=== PATIENT | male | born 1970 | race American Indian/Alaskan Native ===

== ENCOUNTER 2017-09-12 11:25 | Inpatient (IN) | payer BC ==
[2017-09-12 12:07] LABS: Basophils % (Auto) 1.1 % (0.0-1.8); Eosinophils % (Auto) 2.7 % (0.0-4.3); Hematocrit 40.7 % (35.5-45.6); Hemoglobin 13.7 gm/dl (11.8-15.2); Mean Corpuscular HGB Conc 34 % (32-34); Mean Corpuscular Hemoglobin 28 pg (28-32); Mean Corpuscular Volume 82 fl (84-94); Platelet Count 218 K/mm3 (140-440); Red Blood Count 4.94 M/mm3 (3.65-5.03); Red Cell Distribution Width 13.7 % (13.2-15.2); White Blood Count 7.7 K/mm3 (4.5-11.0)
[2017-09-12 12:23] LABS: Anion Gap 19 mmol/L; BUN/Creatinine Ratio 10; Blood Urea Nitrogen 41 mg/dL (9-20); Carbon Dioxide 22 mmol/L (22-30); Chloride 102.3 mmol/L (98-107); Glucose 247 mg/dL (75-100); Potassium 4.5 mmol/L (3.6-5.0); Sodium 139 mmol/L (137-145)
--- NOTE | 2017-09-12 12:42 | XRay Report ---
ROUTINE CHEST, TWO VIEWS: HISTORY: chest pain. The trachea, heart, mediastinal contour, lung amin and bony thorax are unremarkable. IMPRESSION: Unremarkable chest x-ray.
[2017-09-12 13:23] LABS: Cholesterol 170 mg/dL (50-199); HDL Cholesterol 38 mg/dL (40-59); LDL Cholesterol,Direct TNR mg/dL (50-130); Triglycerides 431 mg/dL (2-149)
--- NOTE | 2017-09-12 15:35 | Emergency Department Report ---
HPI - General Chief Complaint: Chest Pain Time Seen by Provider: 09/12/17 15:13 - HPI HPI: Room 2 The patient is a 47-year-old male presents with a chief complaint of chest pain. Patient states the symptoms began 2 days ago with intermittent substernal chest discomfort described as feeling as though there is a "fist pushing" on his chest. Patient states pain is been intermittent and associated with left hand numbness, shortness of breath nausea and vomiting. Patient denies diaphoresis. Patient complains of chronic back pain but denies other pain. Patient currently gives his chest discomfort of 2-3/10. The patient states his last cardiac catheterization occurred in 2011 Location: Chest Duration: Intermittent 2 days Quality: Pushing pain Severity: 2-3/10 Modifying factors: [see above] Context: [see above] Mode of transportation: [not driving] ED Past Medical Hx - Past Medical History Hx Hypertension: Yes Hx Congestive Heart Failure: Yes Hx Diabetes: Yes Hx Renal Disease: Yes Additional medical history: , spinal meningitis as a - Surgical History Additional Surgical History: Angiocath - 2011 - Family History Family history: no significant - Social History Smoking Status: Never Smoker Substance Use Type: None - Medications Home Medications: Home Medications Medication Instructions Recorded Confirmed Last Taken Type ISOSORBIDE MONOnitrate [Imdur ER] 60 mg PO QDAY #30 tablet 07/29/16 06/11/17 Rx Insulin NPH/Regular [NovoLIN 70/30] 30 unit SUB-Q BIDDIAB #10 units 07/29/1606/10/17 Rx Pantoprazole [Protonix TAB] 40 mg PO QDAY #30 tablet 07/29/16 06/11/17 06/10/17 Rx Carvedilol [Coreg] 25 mg PO BID #60 tablet 06/13/17 Unknown Rx Furosemide [Lasix TAB] 20 mg PO BID #60 tablet 06/13/17 Unknown Rx hydrALAZINE [Apresoline TAB] 25 mg PO Q12H #60 tablet 06/13/17 Unknown Rx ED Review of Systems ROS: Stated complaint: CHEST PAIN, NUMBNESS IN LEFT ARM Other details as noted in HPI Constitutional: denies: diaphoresis Eyes: denies: eye pain ENT: denies: ear pain Respiratory: shortness of breath Cardiovascular: chest pain Gastrointestinal: nausea, vomiting. denies: abdominal pain Genitourinary: denies: dysuria Musculoskeletal: back pain Neurological: denies: headache Physical Exam - Physical Exam Vital Signs: Vital Signs 09/12/17 11:30 Temperature 98.8 F Pulse Rate 88 Respiratory 16 Rate Blood Pressure 187/119 O2 Sat by Pulse 98 Oximetry Physical Exam: GENERAL: The patient is well-developed well-nourished male lying on stretcher not appearing to be in acute distress. [] HEENT: Normocephalic. Atraumatic. Extraocular motions are intact. Patient has moist mucous membranes. NECK: Supple. Trachea midline CHEST/LUNGS: Clear to auscultation. There is no respiratory distress noted. HEART/CARDIOVASCULAR: Regular. There is no tachycardia. There is no gallop rub or murmur. ABDOMEN: Abdomen is soft, nontender. Patient has normal bowel sounds. There is no abdominal distention. SKIN: There is no rash. There is no edema. There is no diaphoresis. NEURO: The patient is awake, alert, and oriented. The patient is cooperative. The patient has normal speech MUSCULOSKELETAL: There is no evidence of acute injury. ED Course Vital Signs 09/12/17 11:30 Temperature 98.8 F Pulse Rate 88 Respiratory 16 Rate Blood Pressure 187/119 O2 Sat by Pulse 98 Oximetry ED Medical Decision Making - Lab Data Result diagrams: 09/12/17 11:44 09/12/17 11:44 Laboratory Tests 09/12/17 09/12/17 09/12/17 11:44 11:44 14:44 WBC 7.7 RBC 4.94 Hgb 13.7 Hct 40.7 MCV 82 L MCH 28 MCHC 34 RDW 13.7 Plt Count 218 Lymph % (Auto) 28.7 [place] % (Auto) 5.4 Eos % (Auto) 2.7 Baso % (Auto) 1.1 Lymph # 2.2 [place] # 0.4 Eos # 0.2 Baso # 0.1 Seg Neutrophils % 62.1 Seg Neutrophils # 4.8 Sodium 139 Potassium 4.5 Chloride 102.3 Carbon Dioxide 22 Anion Gap 19 BUN 41 H Creatinine 4.3 H Estimated GFR 18 BUN/Creatinine Ratio 10 Glucose 247 H Calcium 9.0 Troponin T 0.032 H 0.030 H Triglycerides 431 H Cholesterol 170 LDL Cholesterol Direct TNR HDL Cholesterol 38 L Cholesterol/HDL Ratio 4.47 - EKG Data -: EKG Interpreted by Ca EKG shows normal: sinus rhythm Rate: normal - EKG Data When compared to previous EKG there are: changes noted Interpretation: nonspecific ST-T wave estefania (T-wave inversion in lead 3 which is new compared to previous EKG dated 06/11/2017) - Radiology Data Radiology results: image reviewed (chest x-ray) interpreted by me: Chest x-ray-no focal infiltrates, no pneumothorax - Differential Diagnosis ACS, GERD, pericarditis, pneumonia Critical care attestation.: If time is entered above; I have spent that time in minutes in the direct care of this critically ill patient, excluding procedure time. ED Disposition Clinical Impression: Chest pain Disposition: OP ADMIT IP TO THIS HOSP Is pt being admited?: Yes Does the pt Need Aspirin: No Condition: Fair Instructions: Chest Pain (ED) Referrals: PRIMARY CARE, [Primary Care Provider] - 3-5 Days Time of Disposition: 15:38 (hospitalist Dr Alondra damon)
[2017-09-12] MEDS ORDERED: PLAVIX PO ONE (15:39)
[2017-09-12] MEDS ORDERED: APRESOLINE IV SCH (22:00)
--- NOTE | 2017-09-12 22:39 | History and Physical Report ---
History of Present Illness Date of examination: 09/12/17 Date of admission: 09/12/17 Chief complaint: Cc Chest pain 2 days History of present illness: [place]: The patient is a 47-year-old male presents with a chief complaint of chest pain for 2 days with intermittent substernal chest discomfort described as feeling as though there is a "fist pushing" on his chest. Patient states pain is been intermittent and associated with left hand numbness, shortness of breath nausea and vomiting. Patient denies diaphoresis. Patient complains of chronic back pain but denies other pain. Patient currently gives his chest discomfort of 2-3 . The patient states his last cardiac catheterization occurred in 2011 Past Medical History Hx Hypertension: Yes Hx Congestive Heart Failure: Yes Hx Diabetes: Yes Hx Renal Disease: Yes Additional medical history: , spinal meningitis as a - Surgical History Additional Surgical History: Angiocath - 2011 - Family History Family history: no significant - Social History Smoking Status: Never Smoker Substance Use Type: None - Medications Home Medications: Home Medications Medication Instructions Recorded Confirmed Last Taken Type ISOSORBIDE MONOnitrate [Imdur ER] 60 mg PO QDAY #30 tablet 07/29/16 06/11/17 Rx Insulin NPH/Regular [NovoLIN 70/30] 30 unit SUB-Q BIDDIAB #10 units 07/29/1606/10/17 Rx Pantoprazole [Protonix TAB] 40 mg PO QDAY #30 tablet 07/29/16 06/11/17 06/10/17 Rx Carvedilol [Coreg] 25 mg PO BID #60 tablet 06/13/17 Unknown Rx Furosemide [Lasix TAB] 20 mg PO BID #60 tablet 06/13/17 Unknown Rx hydrALAZINE [Apresoline TAB] 25 mg PO Q12H #60 tablet 06/13/17 Unknown Rx Review of Systems Stated complaint: CHEST PAIN, NUMBNESS IN LEFT ARM Other details as noted in HPI Constitutional: denies: diaphoresis Eyes: denies: eye pain ENT: denies: ear pain Respiratory: shortness of breath Cardiovascular: chest pain Gastrointestinal: nausea, vomiting. denies: abdominal pain Genitourinary: denies: dysuria Musculoskeletal: back pain Neurological: denies: headache Medications and Allergies Allergies Allergy/AdvReac Type Severity Reaction Status Date / Time No Known Allergies Allergy Verified 09/12/17 11:30 Home Medications Medication Instructions Recorded Confirmed Last Taken Type ISOSORBIDE MONOnitrate [Imdur ER] 60 mg PO QDAY #30 tablet 07/29/16 09/12/1710/29 Rx Carvedilol [Coreg] 25 mg PO BID #60 tablet 06/13/17 09/12/17 09/12/17 Rx Furosemide [Lasix TAB] 20 mg PO BID #60 tablet 06/13/17 09/12/17 09/12/17 Rx hydrALAZINE [Apresoline TAB] 25 mg PO Q12H #60 tablet 06/13/17 09/12/17 Rx Insulin NPH/Regular [NovoLIN 70/30] 36 unit SUB-Q BIDDIAB 09/12/17 09/12/1710/29 History Active Meds: Active Medications Hydralazine HCl (Apresoline) 5 mg IV Q6H TESFAYE Last Admin: 09/12/17 21:50 Dose: 5 mg Exam - Constitutional Vitals: Temp Pulse Resp BP Pulse Ox 98.7 F 77 16 190/121 96 09/12/17 21:40 09/12/17 21:50 09/12/17 21:40 09/12/17 21:50 09/12/17 21:40 General appearance: Present: no acute distress, well-nourished - EENT Eyes: Present: PERRL ENT: hearing intact, clear oral mucosa - Neck Neck: Present: supple, normal ROM - Respiratory Respiratory effort: normal Respiratory: bilateral: CTA - Cardiovascular Heart rate: 80 Rhythm: regular Heart Sounds: Present: S1 & S2. Absent: rub, click - Extremities Extremities: no ischemia, pulses intact, pulses symmetrical, No edema Peripheral Pulses: within normal limits - Abdominal General gastrointestinal: Present: soft, non-tender, non-distended, normal bowel sounds Male genitourinary: Present: normal - Rectal Rectal Exam: deferred - Integumentary Integumentary: Present: clear, warm, dry - Musculoskeletal Musculoskeletal: gait normal, strength equal bilaterally - Psychiatric Psychiatric: appropriate mood/affect, intact judgment & insight - Neurologic Neurologic: CNII-XII intact, moves all extremities - Allied Health Allied health notes reviewed: nursing, case management Results - Labs CBC & Chem 7: 09/13/17 03:55 09/13/17 03:55 Labs: Laboratory Last Values WBC 7.7 K/mm3 (4.5-11.0) 09/12/17 11:44 RBC 4.94 M/mm3 (3.65-5.03) 09/12/17 11:44 Hgb 13.7 gm/dl (11.8-15.2) 09/12/17 11:44 Hct 40.7 % (35.5-45.6) 09/12/17 11:44 MCV 82 fl (84-94) L 09/12/17 11:44 MCH 28 pg (28-32) 09/12/17 11:44 MCHC 34 % (32-34) 09/12/17 11:44 RDW 13.7 % (13.2-15.2) 09/12/17 11:44 Plt Count 218 K/mm3 (140-440) 09/12/17 11:44 Lymph % (Auto) 28.7 % (13.4-35.0) 09/12/17 11:44 [place] % (Auto) 5.4 % (0.0-7.3) 09/12/17 11:44 Eos % (Auto) 2.7 % (0.0-4.3) 09/12/17 11:44 Baso % (Auto) 1.1 % (0.0-1.8) 09/12/17 11:44 Lymph # 2.2 K/mm3 (1.2-5.4) 09/12/17 11:44 [place] # 0.4 K/mm3 (0.0-0.8) 09/12/17 11:44 Eos # 0.2 K/mm3 (0.0-0.4) 09/12/17 11:44 Baso # 0.1 K/mm3 (0.0-0.1) 09/12/17 11:44 Seg Neutrophils % 62.1 % (40.0-70.0) 09/12/17 11:44 Seg Neutrophils # 4.8 K/mm3 (1.8-7.7) 09/12/17 11:44 Sodium 139 mmol/L (137-145) 09/12/17 11:44 Potassium 4.5 mmol/L (3.6-5.0) 09/12/17 11:44 Chloride 102.3 mmol/L (98-107) 09/12/17 11:44 Carbon Dioxide 22 mmol/L (22-30) 09/12/17 11:44 Anion Gap 19 mmol/L 09/12/17 11:44 BUN 41 mg/dL (9-20) H 09/12/17 11:44 Creatinine 4.3 mg/dL (0.8-1.5) H 09/12/17 11:44 Estimated GFR 18 ml/min 09/12/17 11:44 BUN/Creatinine Ratio 10 % 09/12/17 11:44 Glucose 247 mg/dL (75-100) H 09/12/17 11:44 POC Glucose 109 (70-105) H 09/12/17 16:37 Calcium 9.0 mg/dL (8.4-10.2) 09/12/17 11:44 Troponin T 0.025 ng/mL (0.00-0.029) 09/12/17 17:18 Triglycerides 431 mg/dL (2-149) H 09/12/17 11:44 Cholesterol 170 mg/dL (50-199) 09/12/17 11:44 LDL Cholesterol Direct TNR 09/12/17 11:44 HDL Cholesterol 38 mg/dL (40-59) L 09/12/17 11:44 Cholesterol/HDL Ratio 4.47 % 09/12/17 11:44 Short CBC 09/12/17 09/13/17 Range/Units 11:44 03:55 WBC 7.7 7.2 (4.5-11.0) K/mm3 Hgb 13.7 12.9 (11.8-15.2) gm/dl Hct 40.7 38.6 (35.5-45.6) % Plt Count 218 192 (140-440) K/mm3 BMP 09/12/17 09/13/17 11:44 03:55 Sodium 139 140 Potassium 4.5 4.2 Chloride 102.3 102.1 Carbon Dioxide 22 23 BUN 41 H 36 H Creatinine 4.3 H 4.4 H Glucose 247 H 211 H Calcium 9.0 9.1 Cardiac Enzymes 09/12/17 09/12/17 09/12/17 Range/Units 11:44 14:44 17:18 Total Creatine Kinase (55-170) units/L CK-MB (CK-2) (0.0-4.0) ng/mL Troponin T 0.032 H 0.030 H 0.025 (0.00-0.029) ng/mL 09/12/17 09/13/17 Range/Units 23:18 03:55 Total Creatine Kinase 243 H 238 H (55-170) units/L CK-MB (CK-2) 2.9 2.8 (0.0-4.0) ng/mL Troponin T 0.036 H D 0.044 H D (0.00-0.029) ng/mL Liver Function 09/13/17 Range/Units 03:55 Total Bilirubin 0.20 (0.1-1.2) mg/dL AST 12 (5-40) units/L ALT 14 (7-56) units/L Alkaline Phosphatase 61 (35-129) units/L Albumin 3.6 L (3.9-5) g/dL - Imaging and Cardiology EKG: report reviewed Assessment and Plan Advance Directives: Yes (Full code) VTE prophylaxis?: Chemical Plan of care discussed with patient/family: Yes - Patient Problems (1) Chest pain Current Visit: Yes Status: Acute Qualifiers: Chest pain type: unspecified Qualified Code(s): R07.9 - Chest pain, unspecified Plan to address problem: Chest pain r/o IN w/u. Serial cardiac enzymes Lexiscan in AM Troponin trending higher Cardiology consult (2) Acute kidney injury superimposed on chronic kidney disease Current Visit: No Status: Acute Plan to address problem: Worsening [place] function Bun/cr 37/2.7 in February 2014 31/3.1 in jul 2016 and now 41/4.3 Patient has been seen by Dr Busch in the past Will defer to Nephrology (3) Hypertension, uncontrolled Current Visit: No Status: Acute Plan to address problem: Will adjust meds (4) IDDM (insulin dependent diabetes mellitus) Current Visit: Yes Status: Chronic Plan to address problem: Cont Home insulin and coverage (5) CHF (congestive heart failure) Current Visit: Yes Status: Chronic Qualifiers: Congestive heart failure type: diastolic Plan to address problem: Has EF of 35 to 40 percent . Echo done last year. Cont Lasix (6) CAD (coronary artery disease) Current Visit: Yes Status: Chronic Qualifiers: Coronary Disease-Associated Artery/Lesion type: [place] artery [place] vs. transplanted heart: [place] heart Plan to address problem: Cont Plavix (7) DVT prophylaxis Current Visit: No Status: Acute Plan to address problem: On lovenox
[2017-09-12] MEDS ORDERED: PERCOCET 5/325 PO PRN (22:41)
[2017-09-12] MEDS ORDERED: MILK OF MAGNESIA PO PRN (22:41)
[2017-09-12] MEDS ORDERED: AMBIEN PO PRN (22:41)
[2017-09-12] MEDS ORDERED: ZOFRAN IV PRN (22:41)
[2017-09-12] MEDS ORDERED: DULCOLAX PR PRN (22:41)
[2017-09-12] MEDS ORDERED: TYLENOL PO PRN (22:41)
[2017-09-12] MEDS ORDERED: LASIX ONE (23:25)
[2017-09-12] MEDS ORDERED: APRESOLINE ONE (23:26)
[2017-09-12] MEDS ORDERED: COREG ONE (23:26)
[2017-09-12] MEDS: APRESOLINE PO SCH (23:34)
[2017-09-12] MEDS: COREG PO SCH (23:34)
[2017-09-12] MEDS: LASIX PO SCH (23:34)
[2017-09-12 23:59] LABS: Creatine Kinase MB 2.9 ng/mL (0.0-4.0)
[2017-09-13 04:33] LABS: Basophils % (Auto) 0.9 % (0.0-1.8); Eosinophils % (Auto) 3.1 % (0.0-4.3); Hematocrit 38.6 % (35.5-45.6); Hemoglobin 12.9 gm/dl (11.8-15.2); Mean Corpuscular HGB Conc 34 % (32-34); Mean Corpuscular Hemoglobin 28 pg (28-32); Mean Corpuscular Volume 82 fl (84-94); Platelet Count 192 K/mm3 (140-440); Red Blood Count 4.68 M/mm3 (3.65-5.03); Red Cell Distribution Width 13.9 % (13.2-15.2); White Blood Count 7.2 K/mm3 (4.5-11.0)
[2017-09-13 04:59] LABS: Creatine Kinase MB 2.8 ng/mL (0.0-4.0)
[2017-09-13 05:01] LABS: Albumin 3.6 g/dL (3.9-5); Albumin/Globulin Ratio 1.2 %; Bilirubin,Total 0.2 mg/dL (0.1-1.2); Calcium 9.1 mg/dL (8.4-10.2); Chloride 102.1 mmol/L (98-107); Potassium 4.2 mmol/L (3.6-5.0); Total Protein 6.5 g/dL (6.3-8.2)
[2017-09-13] MEDS ORDERED: LEXISCAN IV ONE (08:07)
[2017-09-13] MEDS: LASIX PO SCH (10:00)
[2017-09-13] MEDS ORDERED: LOVENOX SUB-Q SCH (10:00)
[2017-09-13] MEDS ORDERED: IMDUR PO SCH (10:00)
[2017-09-13] MEDS ORDERED: PEPCID PO SCH (10:00)
[2017-09-13] MEDS: COREG PO SCH (10:00)
--- NOTE | 2017-09-13 10:29 | Consultation ---
Medications and Allergies Allergies Allergy/AdvReac Type Severity Reaction Status Date / Time No Known Allergies Allergy Verified 09/12/17 11:30 Home Medications Medication Instructions Recorded Confirmed Last Taken Type ISOSORBIDE MONOnitrate [Imdur ER] 60 mg PO QDAY #30 tablet 07/29/16 09/12/1710/29 Rx Carvedilol [Coreg] 25 mg PO BID #60 tablet 06/13/17 09/12/17 09/12/17 Rx Furosemide [Lasix TAB] 20 mg PO BID #60 tablet 06/13/17 09/12/17 09/12/17 Rx hydrALAZINE [Apresoline TAB] 25 mg PO Q12H #60 tablet 06/13/17 09/12/17 Rx Insulin NPH/Regular [NovoLIN 70/30] 36 unit SUB-Q BIDDIAB 09/12/17 09/12/1710/29 History Active Meds: Active Medications Acetaminophen (Tylenol) 650 mg PO Q4H PRN PRN Reason: Pain MILD(1-3)/Fever >100.5/CARTAGENA Bisacodyl (Dulcolax) 10 mg GA QDAY PRN PRN Reason: Constipation unrelieved by MOM Carvedilol (Coreg) 25 mg PO BID [facility] Last Admin: 09/12/17 23:34 Dose: 25 mg Enoxaparin Sodium (Lovenox) 30 mg SUB-Q QDAY [facility] Famotidine (Pepcid) 20 mg PO QAM [facility] Furosemide (Lasix) 20 mg PO BID [facility] Last Admin: 09/12/17 23:34 Dose: 20 mg Hydralazine HCl (Apresoline) 25 mg PO Q12H [facility] Last Admin: 09/12/17 23:34 Dose: 25 mg Insulin Human Isoph/Insulin Regular (Novolin 70/30) 36 unit SUB-Q BIDDIAB [facility] Last Admin: 09/13/17 08:02 Dose: Not Given Isosorbide Mononitrate (Imdur) 60 mg PO QDAY [facility] Magnesium Hydroxide (Milk Of Magnesia) 30 ml PO Q4H PRN PRN Reason: Constipation Ondansetron HCl (Zofran) 4 mg IV Q8H PRN PRN Reason: N/V unrelieved by Reglan Oxycodone/Acetaminophen (Percocet 5/325) 1 tab PO Q6H PRN PRN Reason: Pain, Moderate (4-6) Zolpidem Tartrate (Ambien) 5 mg PO QHS PRN PRN Reason: Insomnia Physical Examination Vital Signs Temp Pulse Resp BP Pulse Ox 98.8 F 88 16 187/119 98 09/12/17 11:30 09/12/17 11:30 09/12/17 11:30 09/12/17 11:30 09/12/17 11:30 Results 09/13/17 03:55 09/13/17 03:55 Cardiac Enzymes 09/12/17 09/12/17 09/12/17 Range/Units 11:44 11:44 14:44 WBC 7.7 (4.5-11.0) K/mm3 RBC 4.94 (3.65-5.03) M/mm3 Hgb 13.7 (11.8-15.2) gm/dl Hct 40.7 (35.5-45.6) % MCV 82 L (84-94) fl MCH 28 (28-32) pg MCHC 34 (32-34) % RDW 13.7 (13.2-15.2) % Plt Count 218 (140-440) K/mm3 Lymph % (Auto) 28.7 (13.4-35.0) % [place] % (Auto) 5.4 (0.0-7.3) % Eos % (Auto) 2.7 (0.0-4.3) % Baso % (Auto) 1.1 (0.0-1.8) % Lymph # 2.2 (1.2-5.4) K/mm3 [place] # 0.4 (0.0-0.8) K/mm3 Eos # 0.2 (0.0-0.4) K/mm3 Baso # 0.1 (0.0-0.1) K/mm3 Seg Neutrophils % 62.1 (40.0-70.0) % Seg Neutrophils # 4.8 (1.8-7.7) K/mm3 Sodium 139 (137-145) mmol/L Potassium 4.5 (3.6-5.0) mmol/L Chloride 102.3 (98-107) mmol/L Carbon Dioxide 22 (22-30) mmol/L Anion Gap 19 mmol/L BUN 41 H (9-20) mg/dL Creatinine 4.3 H (0.8-1.5) mg/dL Estimated GFR 18 ml/min BUN/Creatinine Ratio 10 % Glucose 247 H (75-100) mg/dL POC Glucose (70-105) Calcium 9.0 (8.4-10.2) mg/dL Total Bilirubin (0.1-1.2) mg/dL AST (5-40) units/L ALT (7-56) units/L Alkaline Phosphatase (35-129) units/L Total Creatine Kinase (55-170) units/L CK-MB (CK-2) (0.0-4.0) ng/mL CK-MB (CK-2) Rel Index (0-4) Troponin T 0.032 H 0.030 H (0.00-0.029) ng/mL Total Protein (6.3-8.2) g/dL Albumin (3.9-5) g/dL Albumin/Globulin Ratio % Triglycerides 431 H (2-149) mg/dL Cholesterol 170 (50-199) mg/dL LDL Cholesterol Direct TNR HDL Cholesterol 38 L (40-59) mg/dL Cholesterol/HDL Ratio 4.47 % 09/12/17 09/12/17 09/12/17 Range/Units 16:37 17:18 23:18 WBC (4.5-11.0) K/mm3 RBC (3.65-5.03) M/mm3 Hgb (11.8-15.2) gm/dl Hct (35.5-45.6) % MCV (84-94) fl MCH (28-32) pg MCHC (32-34) % RDW (13.2-15.2) % Plt Count (140-440) K/mm3 Lymph % (Auto) (13.4-35.0) % [place] % (Auto) (0.0-7.3) % Eos % (Auto) (0.0-4.3) % Baso % (Auto) (0.0-1.8) % Lymph # (1.2-5.4) K/mm3 [place] # (0.0-0.8) K/mm3 Eos # (0.0-0.4) K/mm3 Baso # (0.0-0.1) K/mm3 Seg Neutrophils % (40.0-70.0) % Seg Neutrophils # (1.8-7.7) K/mm3 Sodium (137-145) mmol/L Potassium (3.6-5.0) mmol/L Chloride (98-107) mmol/L Carbon Dioxide (22-30) mmol/L Anion Gap mmol/L BUN (9-20) mg/dL Creatinine (0.8-1.5) mg/dL Estimated GFR ml/min BUN/Creatinine Ratio % Glucose (75-100) mg/dL POC Glucose 109 H (70-105) Calcium (8.4-10.2) mg/dL Total Bilirubin (0.1-1.2) mg/dL AST (5-40) units/L ALT (7-56) units/L Alkaline Phosphatase (35-129) units/L Total Creatine Kinase 243 H (55-170) units/L CK-MB (CK-2) 2.9 (0.0-4.0) ng/mL CK-MB (CK-2) Rel Index 1.1 (0-4) Troponin T 0.025 0.036 H D (0.00-0.029) ng/mL Total Protein (6.3-8.2) g/dL Albumin (3.9-5) g/dL Albumin/Globulin Ratio % Triglycerides (2-149) mg/dL Cholesterol (50-199) mg/dL LDL Cholesterol Direct HDL Cholesterol (40-59) mg/dL Cholesterol/HDL Ratio % 09/13/17 09/13/17 09/13/17 Range/Units 03:55 03:55 03:55 WBC 7.2 (4.5-11.0) K/mm3 RBC 4.68 (3.65-5.03) M/mm3 Hgb 12.9 (11.8-15.2) gm/dl Hct 38.6 (35.5-45.6) % MCV 82 L (84-94) fl MCH 28 (28-32) pg MCHC 34 (32-34) % RDW 13.9 (13.2-15.2) % Plt Count 192 (140-440) K/mm3 Lymph % (Auto) 28.3 (13.4-35.0) % [place] % (Auto) 5.5 (0.0-7.3) % Eos % (Auto) 3.1 (0.0-4.3) % Baso % (Auto) 0.9 (0.0-1.8) % Lymph # 2.0 (1.2-5.4) K/mm3 [place] # 0.4 (0.0-0.8) K/mm3 Eos # 0.2 (0.0-0.4) K/mm3 Baso # 0.1 (0.0-0.1) K/mm3 Seg Neutrophils % 62.2 (40.0-70.0) % Seg Neutrophils # 4.5 (1.8-7.7) K/mm3 Sodium 140 (137-145) mmol/L Potassium 4.2 (3.6-5.0) mmol/L Chloride 102.1 (98-107) mmol/L Carbon Dioxide 23 (22-30) mmol/L Anion Gap 19 mmol/L BUN 36 H (9-20) mg/dL Creatinine 4.4 H (0.8-1.5) mg/dL Estimated GFR 18 ml/min BUN/Creatinine Ratio 8 % Glucose 211 H (75-100) mg/dL POC Glucose (70-105) Calcium 9.1 (8.4-10.2) mg/dL Total Bilirubin 0.20 (0.1-1.2) mg/dL AST 12 (5-40) units/L ALT 14 (7-56) units/L Alkaline Phosphatase 61 (35-129) units/L Total Creatine Kinase 238 H (55-170) units/L CK-MB (CK-2) 2.8 (0.0-4.0) ng/mL CK-MB (CK-2) Rel Index 1.1 (0-4) Troponin T 0.044 H D (0.00-0.029) ng/mL Total Protein 6.5 (6.3-8.2) g/dL Albumin 3.6 L (3.9-5) g/dL Albumin/Globulin Ratio 1.2 % Triglycerides (2-149) mg/dL Cholesterol (50-199) mg/dL LDL Cholesterol Direct HDL Cholesterol (40-59) mg/dL Cholesterol/HDL Ratio % Lipids 09/12/17 Range/Units 11:44 Triglycerides 431 H (2-149) mg/dL Cholesterol 170 (50-199) mg/dL HDL Cholesterol 38 L (40-59) mg/dL Cholesterol/HDL Ratio 4.47 % CBC 09/12/17 09/13/17 Range/Units 11:44 03:55 WBC 7.7 7.2 (4.5-11.0) K/mm3 RBC 4.94 4.68 (3.65-5.03) M/mm3 Hgb 13.7 12.9 (11.8-15.2) gm/dl Hct 40.7 38.6 (35.5-45.6) % Plt Count 218 192 (140-440) K/mm3 Lymph # 2.2 2.0 (1.2-5.4) K/mm3 [place] # 0.4 0.4 (0.0-0.8) K/mm3 Eos # 0.2 0.2 (0.0-0.4) K/mm3 Baso # 0.1 0.1 (0.0-0.1) K/mm3 Comprehensive Metabolic Panel 09/12/17 09/13/17 Range/Units 11:44 03:55 Sodium 139 140 (137-145) mmol/L Potassium 4.5 4.2 (3.6-5.0) mmol/L Chloride 102.3 102.1 (98-107) mmol/L Carbon Dioxide 22 23 (22-30) mmol/L BUN 41 H 36 H (9-20) mg/dL Creatinine 4.3 H 4.4 H (0.8-1.5) mg/dL Glucose 247 H 211 H (75-100) mg/dL Calcium 9.0 9.1 (8.4-10.2) mg/dL AST 12 (5-40) units/L ALT 14 (7-56) units/L Alkaline Phosphatase 61 (35-129) units/L Total Protein 6.5 (6.3-8.2) g/dL Albumin 3.6 L (3.9-5) g/dL Assessment and Plan full consult dictated await stress mpi results thanks
[2017-09-13 11:20] LABS: Creatine Kinase MB 2.8 ng/mL (0.0-4.0)
--- NOTE | 2017-09-13 12:16 | Discharge Summary ---
Providers - Providers Date of Admission: 09/12/17 22:41 Date of discharge: 09/13/17 Attending physician: SLIM JAMISON 09/13/17 07:52 Consult to Physician [CONS] Routine Consulting Provider: RUMA YANEZ Reason For Exam: chest pain, mild Troponin elevation Place consult to:: [facility] heart Notified:: y Comment:: added to list 09/13/17 10:31 Consult to Physician [CONS] Routine Consulting Provider: BARNEY SAUNDERS Reason For Exam: CKD Place consult to:: renal Notified:: a service Phone number called:: [phone] Was contact made?: Yes If yes, spoke with:: vincenzo Time called:: 11:33 Primary care physician: CARPORT ERECTOR Hospitalization Condition: Fair Hospital course: Patient is 47 yo with hypertension, diabetes, chronic kidney disease. He presented with chest pain. First Troponin was normal, second was slight elevated. patient was administered aspirin and admitted to rule out acute coronary syndrome. He was evaluated by Supervisor Unloading. Stress test done following day was normal. Patient was then discharged home. chest pain due to GERD. Disposition: - TO HOME OR SELFCARE - Discharge Diagnoses (1) Diabetes mellitus type 2, uncontrolled Status: Chronic (2) Chronic systolic heart failure Status: Chronic (3) Obesity Status: Chronic (4) Chest pain Status: Acute (5) GERD (gastroesophageal reflux disease) Status: Acute (6) GERD (gastroesophageal reflux disease) Status: Acute (7) CKD (chronic kidney disease) stage 4, GFR 15-29 ml/min Status: Chronic Core Measure Documentation - Palliative Care Palliative Care/ Comfort Measures: Not Applicable - Core Measures Any of the following diagnoses?: none Exam - Constitutional Vitals: Temp Pulse Resp BP Pulse Ox 98.4 F 96 H 18 147/87 95 09/13/17 07:11 09/13/17 09:42 09/13/17 07:11 09/13/17 09:42 09/13/17 07:11 General appearance: Present: no acute distress - Neck Neck: Present: supple - Respiratory Respiratory: bilateral: CTA - Cardiovascular Rhythm: regular Heart Sounds: Present: S1 & S2 - Extremities Extremities: No edema - Abdominal General gastrointestinal: Present: soft - Musculoskeletal Musculoskeletal: strength equal bilaterally - Neurologic Neurologic: moves all extremities Plan Activity: advance as tolerated Additional Instructions: 1.Follow up with Dr. Tovar, cardiology in 1 week. 2.Follow up with Dr. Bautista, Nephrology in 1 week Follow up with: PRIMARY CARE, [Primary Care Provider] - 3-5 Days Prescriptions: Aspirin EC [Aspirin Enteric Coated TAB] 81 mg PO QDAY #30 tablet. Famotidine [Pepcid] 20 mg PO QAM #15 tablet
--- NOTE | 2017-09-13 13:36 | Consultation ---
History of Present Illness - Reason for Consult Consult date: 09/13/17 chronic renal failure Requesting physician: CATARINA BLAIR - History of Present Illness The patient is a 47-year-old male presents with a chief complaint of chest pain for 2 days with intermittent substernal chest discomfort described as feeling as though there is a "fist pushing" on his chest. Patient states pain is been intermittent and associated with left hand numbness, shortness of breath nausea and vomiting. Patient denies diaphoresis. Patient complains of chronic back pain but denies other pain. Patient currently gives his chest discomfort of 2-3 /10. The patient states his last cardiac catheterization occurred in 2011 He is known to our practice. He was evaluated by Dr. Busch in the hospital in May of this year. Patient denies any shortness of breath at this time. Denies any ankle edema. Denies any recent nonsteroidal use Past History Past Medical History: diabetes, hypertension, renal failure Social history: no significant social history, other (denies smoking or drinking ) Family history: no significant family history (noncontributory for kidney disease) Medications and Allergies Allergies Allergy/AdvReac Type Severity Reaction Status Date / Time No Known Allergies Allergy Verified 09/12/17 11:30 Home Medications Medication Instructions Recorded Confirmed Last Taken Type ISOSORBIDE MONOnitrate [Imdur ER] 60 mg PO QDAY #30 tablet 07/29/16 09/12/1710/29 Rx Carvedilol [Coreg] 25 mg PO BID #60 tablet 06/13/17 09/12/17 09/12/17 Rx Furosemide [Lasix TAB] 20 mg PO BID #60 tablet 06/13/17 09/12/17 09/12/17 Rx hydrALAZINE [Apresoline TAB] 25 mg PO Q12H #60 tablet 06/13/17 09/12/17 Rx Insulin NPH/Regular [NovoLIN 70/30] 36 unit SUB-Q BIDDIAB 09/12/17 09/12/1710/29 History Active Meds: Active Medications Acetaminophen (Tylenol) 650 mg PO Q4H PRN PRN Reason: Pain MILD(1-3)/Fever >100.5/CARTAGENA Bisacodyl (Dulcolax) 10 mg OR QDAY PRN PRN Reason: Constipation unrelieved by MOM Carvedilol (Coreg) 25 mg PO BID [facility] Last Admin: 09/13/17 10:00 Dose: Not Given Enoxaparin Sodium (Lovenox) 30 mg SUB-Q QDAY [facility] Last Admin: 09/13/17 10:00 Dose: Not Given Famotidine (Pepcid) 20 mg PO QAM [facility] Last Admin: 09/13/17 10:00 Dose: Not Given Furosemide (Lasix) 20 mg PO BID [facility] Last Admin: 09/13/17 10:00 Dose: Not Given Hydralazine HCl (Apresoline) 25 mg PO Q12H [facility] Last Admin: 09/12/17 23:34 Dose: 25 mg Insulin Human Isoph/Insulin Regular (Novolin 70/30) 36 unit SUB-Q BIDDIAB [facility] Last Admin: 09/13/17 08:02 Dose: Not Given Isosorbide Mononitrate (Imdur) 60 mg PO QDAY [facility] Last Admin: 09/13/17 10:00 Dose: Not Given Magnesium Hydroxide (Milk Of Magnesia) 30 ml PO Q4H PRN PRN Reason: Constipation Ondansetron HCl (Zofran) 4 mg IV Q8H PRN PRN Reason: N/V unrelieved by Reglan Oxycodone/Acetaminophen (Percocet 5/325) 1 tab PO Q6H PRN PRN Reason: Pain, Moderate (4-6) Zolpidem Tartrate (Ambien) 5 mg PO QHS PRN PRN Reason: Insomnia Review of Systems All systems: negative (negative except as noted above) Exam - Vital Signs Vital signs: Vital Signs Temp Pulse Resp BP Pulse Ox 98.8 F 88 16 187/119 98 09/12/17 11:30 09/12/17 11:30 09/12/17 11:30 09/12/17 11:30 09/12/17 11:30 - General Appearance General appearance: well-developed, well-nourished, appears stated age EENT: PERRL, mucous membranes moist Neck: Present: neck supple, trachea midline. Absent: JVD/HJR, Masses Respiratory: Clear to Ascultation Heart: regular, normal heart rate, S1S2, no murmurs Gastrointestinal: Present: normal, normoactive bowel sounds Integumentary: no rash, other (no edema) Results - Lab Results 12/02/17 03:55 09/13/17 03:55 Most recent lab results Calcium 9.1 mg/dL (8.4-10.2) 09/13/17 03:55 Assessment and Plan Impression: * It appears that he has underlying chronic kidney disease. His serum creatinine was around 4 back in May of this year . * Etiology of chronic kidney disease secondary to multifactorial etiologies: HTN , DM and cardiorenal syndrome * Acute systolic/diastolic heart failure --TTE in May 2017: LVEF 20-25%, impaired relaxation * History of congestive heart failure * Hypertension * Type II DM * History of hydronephrosis Plan: * Renal ultrasound in July 2016 showed evidence of bilateral hydronephrosis. Shall repeat a renal ultrasound as well as a bladder scan * Patient is clinically euvolemic and his renal function is stable. No acute indication for renal replacement therapy * Will obtain u/a, UPCR and urine lytes * Continue antiHTN medications * Optimization of cardiac function * Compliance addressed with patient * Avoid nephrotoxins * Dose medications for renal function
--- NOTE | 2017-09-13 15:54 | Ultrasound Report ---
FINAL REPORT PROCEDURE: US RENAL BILAT TECHNIQUE: Real-time sonography in multiple planes of the kidneys, ureters and urinary bladder was performed with image documentation. CPT 41097 HISTORY: hydronephrosis COMPARISON: Prior CT scan abdomen and pelvis 07/27/2016 FINDINGS: The echogenicity of the renal cortex bilaterally appears increased consistent with chronic renal parenchymal disease. There is moderate right-sided hydronephrosis visualized. Small hypoechoic nodule visualized in the upper 3rd of the right kidney measuring approximately 8 millimeters x 9 millimeters. There appears to be increased through sound transmission and enhancement of the posterior wall. I suspect this represents a small cyst. No calculi are identified. Urinary bladder was not visualized. The right kidney measures 11.8 x 4.7 x 5.0 centimeter. The left kidney measures 11.5 x 6.0 x 5.7 centimeters. IMPRESSION: Echogenicity renal cortex bilaterally is diffusely increased consistent with chronic renal parenchymal disease. Small renal cortical cyst visualize right kidney. Moderate right-sided hydronephrosis visualized..
[2017-09-13] MEDS: APRESOLINE PO SCH ×2 (16:40→16:47)
--- NOTE | 2017-09-13 17:24 | Consultation ---
CARDIOLOGY CONSULT REASON FOR CONSULTATION: Advice regarding chest pain. HISTORY OF PRESENT ILLNESS: The patient is a pleasant 47-year-old gentleman with a history of severe nonischemic cardiomyopathy, stage 4 chronic kidney disease, hypertension, and type 2 diabetes, who presents to the Emergency Room with mild chest pain. His chest pain is now resolved. Stress test is ordered by primary. He denies any syncope or presyncope. Shortness of breath is stable. No fevers, chills, nausea, or vomiting. No hematochezia, melena, hemoptysis, or hematemesis. He is known to be noncompliant. Inpatient and outpatient medications reviewed. REVIEW OF SYSTEMS: As per HPI. ALLERGIES: No known drug, food, or environmental allergies. PHYSICAL EXAMINATION: VITAL SIGNS: Blood pressure is 140/80, afebrile. Tele reveals sinus rhythm in the 90s-105. No dysrhythmias. O2 sats 100% on 2 liters. HEENT: Sclerae are anicteric. PEERLA. NECK: Supple. No mass or JVD. CHEST: Clear to auscultation bilaterally. Good air movement. CARDIOVASCULAR: Regular S1, S2. ABDOMEN: Soft, nontender, nondistended. Normoactive bowel sounds in all 4 quadrants. No mass or bruits. EXTREMITIES: No cyanosis, clubbing, edema. Good peripheral pulses. SKIN: Intact. No rashes. LABORATORY DATA: His creatinine is 4.3, upon discharge in May his creatinine was 4.5. He is right around baseline. Sodium 140, potassium 4.2. His troponin is flat 0.035, 0.036, 0.044. CBC is normal. A D-dimer is also normal. EKG reveals normal sinus rhythm, nonspecific ST-T wave changes, unchanged from prior. ASSESSMENT AND PLAN: In summary, the patent is a pleasant 47-year-old male. 1. Chest pain mostly with typical and atypical features. Troponin is flat, negative. EKG, no acute changes. Stress test ordered. 2. History of nonischemic cardiomyopathy. 3. History of medication noncompliance. 4. History of stage IV chronic kidney disease. Recommended BP control, DVT prophylaxis. Continue current Lasix dosing. Further plans contingent on stress test results. Thank you for this consultation. We would be happy to follow along with you. JOB# [id number] SBM/NTS
[2017-09-13 17:48] VITALS: BP 170/92
--- NOTE | 2017-09-13 19:44 | Treadmill Report ---
REFERRING PHYSICIAN: Hospitalist service. PROTOCOL: The patient was brought to the stress lab in a postoperative state, given 10 mCi of technetium 99m at rest. The patient underwent rest imaging. The patient underwent Lexiscan stress test per standard protocol. At peak stress, the patient was given 26 mCi of technetium 99m. Shortly thereafter, the patient underwent stress imaging. Raw imaging reveals mild GI artifact. No significant motion artifact. SPECT images examined carefully in the horizontal long axis, vertical long axis, and short axis views. Grossly, there is normal homogenous uptake of radioisotope in all reported segments. No evidence of a significant fixed or reversible perfusion defects suggestive of prior infarction or active ischemia. Gated wall motion reveals moderate global left ventricular hypokinesis with a calculated ejection fraction of 40%. No TID. CONCLUSIONS: 1. Normal myocardial perfusion scan without evidence of active ischemia or prior infarction. 2. Moderate global left ventricular hypokinesis with a calculated ejection fraction of 40%. JOB# [id number] ERICK/EDNA
== END 2017-09-13 18:30 | disposition home or self-care (01) | DRG 682 ==
LOC: ED 11:25 → 4A 22:41
PROVIDERS: ADMIT Internal Medicine; ATTEND Internal Medicine
DX: N17.9 Acute kidney failure, unspecified (principal); I50.41 Acute combined systolic (congestive) and diastolic (congestive) heart failure; I13.0 Hypertensive heart and chronic kidney disease with heart failure and stage 1 through stage 4 chronic kidney disease, or unspecified chronic kidney disease; I42.9 Cardiomyopathy, unspecified; N18.4 Chronic kidney disease, stage 4 (severe); G89.29 Other chronic pain; M54.9 Dorsalgia, unspecified; E11.22 Type 2 diabetes mellitus with diabetic chronic kidney disease; I25.10 Atherosclerotic heart disease of native coronary artery without angina pectoris; Z79.4 Long term (current) use of insulin; Z79.899 Other long term (current) drug therapy; Z91.19 Patient's noncompliance with other medical treatment and regimen
CPT/HCPCS: 36415; 71020; 76770; 78452; 80048; 80053; 80061; 82550; 82553; 82565; 82962; 84295; 84484; 85025; 93005; 93010; 93017; 96374; A9502; J0360; J1815; J2785

== ENCOUNTER 2019-01-10 04:57 | Inpatient (IN) | payer BC, OTHER ==
--- NOTE | 2019-01-10 05:46 | XRay Report ---
PROCEDURE: XR CHEST 1V AP TECHNIQUE: An AP view of the chest was obtained. HISTORY: cough COMPARISONS: No previous studies available for comparison. FINDINGS: The heart is moderately enlarged. The lungs appear mildly congested. There are no discrete infiltrate s or effusions. The skeletal structures do not show any acute changes. IMPRESSION: Cardiomegaly with pulmonary congestion.. This document is electronically signed by David Hines MD., January 10 2019 05:44:36 AM ET
[2019-01-10 06:12] LABS: Basophils # (Auto) 0.1 K/mm3 (0.0-0.1); Eosinophils # (Auto) 0.3 K/mm3 (0.0-0.4); Eosinophils % (Auto) 3.9 % (0.0-4.3); Hematocrit 33.9 % (35.5-45.6); Hemoglobin 11.2 gm/dl (11.8-15.2); Lymphocytes # (Auto) 1.4 K/mm3 (1.2-5.4); Lymphocytes % (Auto) 20.9 % (13.4-35.0); Mean Corpuscular HGB Conc 33 % (32-34); Mean Corpuscular Volume 85 fl (84-94); Monocytes # (Auto) 0.5 K/mm3 (0.0-0.8); Platelet Count 195 K/mm3 (140-440); Red Cell Distribution Width 14.1 % (13.2-15.2)
[2019-01-10 06:23] LABS: Albumin 3.5 g/dL (3.9-5); Calcium 7.7 mg/dL (8.4-10.2)
--- NOTE | 2019-01-10 07:27 | Emergency Department Report ---
ED Shortness of Breath HPI - General Chief Complaint: Dyspnea/Respdistress Stated Complaint: WHEEZING/COUGHING Time Seen by Provider: 01/10/19 07:21 Source: patient Mode of arrival: Ambulatory Limitations: No Limitations - History of Present Illness Initial Comments: 48-year-old male with history of CHF, chronic kidney disease presents to ED with shortness of breath 2 weeks. Patient reports dyspnea on exertion, orthopnea, swelling to bilateral legs. Patient states he feels as if he is congested and drowning, reports nonproductive cough. Denies fever or chest pain. Patient states he is compliant with Lasix. Patient concerned that he may have pneumonia. Cardiology: Guy Nephrology: Leatha CASTELAN Complaint: shortness of breath -: week(s) (2) Severity: moderate Consistency: intermittent Improves With: nothing Worsens With: lying flat, exertion Known History Of: congestive heart failure Associated Symptoms: cough Treatments Prior to Arrival: none - Related Data Home Oxygen Therapy: No Home Medications Medication Instructions Recorded Confirmed Last Taken Insulin NPH/Regular [NovoLIN 70/30] 36 unit SUB-Q BIDDIAB 09/12/17 01/10/19 09/12/17 hydrALAZINE [Apresoline TAB] 50 mg PO TID 01/10/19 01/10/19 Unknown Previous Rx's Medication Instructions Recorded Last Taken Type Carvedilol [Coreg] 25 mg PO BID #60 tablet 06/13/17 09/12/17 Rx Furosemide [Lasix TAB] 20 mg PO BID #60 tablet 06/13/17 09/12/17 Rx Aspirin EC [Aspirin Enteric Coated 81 mg PO QDAY #30 tablet. 09/13/17 Unknown Rx TAB] Famotidine [Pepcid] 20 mg PO QAM #15 tablet 09/13/17 Unknown Rx Allergies Allergy/AdvReac Type Severity Reaction Status Date / Time No Known Allergies Allergy Verified 09/12/17 11:30 ED Review of Systems ROS: Stated complaint: WHEEZING/COUGHING Other details as noted in HPI Comment: All other systems reviewed and negative Constitutional: denies: chills, fever Respiratory: cough, orthopnea, shortness of breath, wheezing Cardiovascular: denies: chest pain ED Past Medical Hx - Past Medical History Previous Medical History?: Yes Hx Hypertension: Yes Hx Congestive Heart Failure: Yes Hx Diabetes: Yes Hx Renal Disease: Yes Hx Kidney Stones: No Hx Asthma: No Hx COPD: No Additional medical history: Spinal meningitis as a - Surgical History Past Surgical History?: Yes Additional Surgical History: Angiocath - 2012 - Social History Smoking Status: Never Smoker Substance Use Type: None - Medications Home Medications: Home Medications Medication Instructions Recorded Confirmed Last Taken Type Carvedilol [Coreg] 25 mg PO BID #60 tablet 06/13/17 01/10/19 09/12/17 Rx Furosemide [Lasix TAB] 20 mg PO BID #60 tablet 06/13/17 01/10/19 09/12/17 Rx Insulin NPH/Regular [NovoLIN 70/30] 36 unit SUB-Q BIDDIAB 09/12/17 01/10/19 09/12/17 History Aspirin EC [Aspirin Enteric Coated 81 mg PO QDAY #30 tablet. 09/13/17 01/10/19 Unknown Rx TAB] Famotidine [Pepcid] 20 mg PO QAM #15 tablet 09/13/17 01/10/19 Unknown Rx hydrALAZINE [Apresoline TAB] 50 mg PO TID 01/10/19 01/10/19 Unknown History ED Physical Exam - General Limitations: No Limitations General appearance: alert, in no apparent distress - Head Head exam: Present: atraumatic, normocephalic - Eye Eye exam: Present: normal appearance - ENT ENT exam: Present: mucous membranes moist - Neck Neck exam: Present: normal inspection - Respiratory Respiratory exam: Present: normal lung sounds bilaterally - Cardiovascular Cardiovascular Exam: Present: regular rate, normal rhythm - GI/Abdominal GI/Abdominal exam: Present: soft. Absent: distended, tenderness - Extremities Exam Extremities exam: Absent: pedal edema, calf tenderness - Neurological Exam Neurological exam: Present: alert, oriented X3 - Psychiatric Psychiatric exam: Present: normal affect, normal mood - Skin Skin exam: Present: warm, dry, intact, normal color ED Course Vital Signs 01/10/19 01/10/19 05:01 05:08 Temperature 98.2 F 98.2 F Pulse Rate 84 84 Respiratory 18 20 Rate Blood Pressure 179/108 179/108 O2 Sat by Pulse 94 94 Oximetry - Reevaluation(s) Reevaluation #1: 01/10/19 08:22 Pt states he believes his last known creatnine was 4 last year in 2018. Last documented creatnine in system was 4.4 in 2017. ED Medical Decision Making - Lab Data Result diagrams: 01/10/19 05:39 01/10/19 05:46 - EKG Data -: EKG Interpreted by Me EKG shows normal: sinus rhythm, axis, QRS complexes Rate: normal - EKG Data Interpretation: LVH, other (prolonged QT) - Radiology Data Radiology results: report reviewed - Medical Decision Making 48-year-old male with dyspnea on exertion, orthopnea 2 weeks. Patient has history of CHF and chronic kidney disease, not yet on dialysis. BNP elevated at 4000, and chest x-rays shows pulmonary congestion. O2 sats 94% on room air. Renal function shows BUN of 64 and creatinine of 9.6, potassium is normal. Troponin mildly elevated at 0.07, this could be due to patient's renal function. Respiratory status likely due to a combination of acute on chronic heart and kidney failure. Patient denies any change in his urine output, states he urinates often gets a little Lasix. Will hold Lasix at this time given his renal function, as patient is in no respiratory distress currently. Spoke w/ hospitalist, Dr Copeland, states bridge to Dr Coon. - Differential Diagnosis CHF, renal failure, pneumonia Critical care attestation.: If time is entered above; I have spent that time in minutes in the direct care of this critically ill patient, excluding procedure time. ED Disposition Clinical Impression: CHF (congestive heart failure), Acute on chronic renal failure Disposition: OP ADMIT IP TO THIS HOSP Is pt being admited?: Yes Condition: Stable Referrals: JANESSA DYE MD [Primary Care Provider] - 3-5 Days Time of Disposition: 08:21
[2019-01-10 08:34] LABS: Chol/HDL Ratio 3.43 %
[2019-01-10] MEDS ORDERED: APRESOLINE IV ONE (08:43)
--- NOTE | 2019-01-10 11:01 | History and Physical Report ---
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 He has PND, bilateral leg swelling and orthopnea; he feels like he is downing when lay down. He had a severe repetitive nonproductive cough associated with SOB. Now, even rest doesn't help the SOB so he decided to come to the ER. There is no aggravating or relieving factor to the SOB. When he becomes SOB, he starts to cough to get air. He is pretty much compliant with his medication except Hydralazine which has a hard time taking three times a day due to his work schedule. He admits to drinking excessively, about 1 gallon a day of water. He denies any problems with urination. His PCP is Dr. Torre/Belinda, Car diologist is Dr. Imtiaz Tovar and his Actuary Dr. Zhang. He is being admitted for AE CHF and worsening CKD probably needing initiation of HD with ultrafiltration to treat the CHF. PMH: as hpi, also Left ear deafness from spinal meningitis as a child PSH: Tonsillectomy, Lumbar puncture as a child for meningitis, Cardiac cath 2011, Stress test 2016 SH: nonsmoker, no alcohol abuse or drug abuse, , has 11 children, full code, works inside a [employer] FH: multiple family members with heart attacks in their 40s and 50s, Hypertension, Diabetes mellitus NKDA Home Medications: Novolin 70/30 20 units bid, hydralazine 50mg TID (but only on takes BID due to his work schedule of 5am to 2pm), 81mg asa, Coreg 25mg bid, lasix 20mg qday ROS: Constitutional: denies: fever ENT: denies: throat or neck pain Respiratory: + cough, shortness of breath Cardiovascular: +chest pain Endocrine: denies unexplained weight loss or gain Gastrointestinal: denies: abdominal pain, nausea Genitourinary: denies: dysuria Rectal: denies no incontinence, no bleeding, no itching, no discharge Musculoskeletal: denies swelling, myaglia, muscle weakness Skin: denies: rash Neurological: denies: headache Hematological/Lymphatic: denies: easy bleeding or easy bruising Allergic/Immunologic: no urticaria, no allergic rhinitis, no anaphylaxis Psych: denies sadness or hopelessness, SI/HI Medications and Allergies Allergies Allergy/AdvReac Type Severity Reaction Status Date / Time No Known Allergies Allergy Verified 09/12/17 11:30 Home Medications Medication Instructions Recorded Confirmed Last Taken Type Carvedilol [Coreg] 25 mg PO BID #60 tablet 06/13/17 01/10/19 09/12/17 Rx Furosemide [Lasix TAB] 20 mg PO BID #60 tablet 06/13/17 01/10/19 09/12/17 Rx Insulin NPH/Regular [NovoLIN 70/30] 36 unit SUB-Q BIDDIAB 09/12/17 01/10/19 09/12/17 History Aspirin EC [Aspirin Enteric Coated 81 mg PO QDAY #30 tablet. 09/13/17 01/10/19 Unknown Rx TAB] Famotidine [Pepcid] 20 mg PO QAM #15 tablet 09/13/17 01/10/19 Unknown Rx hydrALAZINE [Apresoline TAB] 50 mg PO TID 01/10/19 01/10/19 Unknown History Active Meds: Active Medications Aspirin (Halfprin Ec) 81 mg PO QDAY [facility] Carvedilol (Coreg) 25 mg PO BID [facility] Famotidine (Pepcid) 20 mg PO QAM [facility] Hydralazine HCl (Apresoline) 50 mg PO TID [facility] Insulin Human Isoph/Insulin Regular (Humulin 70/30) 20 unit SUB-Q BIDDIAB [facility] Exam - Physical Exam Narrative exam: Gen: WDWN, NAD, Awake, Alert, Orientated HEENT: NCAT, EOMI, PERRL, OP Clear Neck: supple, no adenopathy, no thyromegaly, + JVD CVS/Heart: RRR, normal S1S2, pulses present bilaterally Chest/Lungs: bilateral crackles, Symmetrical chest expansion, good air entry bilaterally GI/Abdomen: soft, NTND, good bowel sounds, no guarding or rebound /Bladder: no suprapubic tenderness, no CVA or paraspinal tenderness Extermity/Skin: BLE edema, no obvious rash MSK: FROM x 4 Neuro: CN 2-12 grossly intact, no new focal deficits Psych: calm - Constitutional Vitals: Temp Pulse Resp BP Pulse Ox 98.2 F 84 16 162/101 97 01/10/19 05:08 01/10/19 09:10 01/10/19 09:10 01/10/19 09:10 01/10/19 09:10 Results - Labs CBC & Chem 7: 01/10/19 05:39 01/10/19 05:46 Labs: Abnormal lab results 01/10/19 01/10/19 01/10/19 Range/Units 05:39 05:39 05:46 Hgb 11.2 L (11.8-15.2) gm/dl Hct 33.9 L (35.5-45.6) % APTT (24.2-36.6) Sec. Carbon Dioxide 20 L (22-30) mmol/L BUN 64 H (9-20) mg/dL Creatinine 9.6 H (0.8-1.5) mg/dL Glucose 171 H (75-100) mg/dL Calcium 7.7 L (8.4-10.2) mg/dL Troponin T (0.00-0.029) ng/mL NT-Pro-B Natriuret Pep 4890 H (0-450) pg/mL Albumin 3.5 L (3.9-5) g/dL 01/10/19 01/10/19 Range/Units 07:30 07:30 Hgb (11.8-15.2) gm/dl Hct (35.5-45.6) % APTT 20.0 L (24.2-36.6) Sec. 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 His PCP is Dr. Torre/Belinda, Ndt Inspector is Dr. Imtiaz Tovar and his Actuary is Dr. Zhang. He is being admitted for AE CHF and worsening CKD probably needing initiation of HD with ultrafiltration to treat the CHF. * pro-BNP elevated at 4890, O2 sats 94% on room air. Renal function shows BUN of 64 and creatinine of 9.6, potassium is normal. Troponin mildly elevated at 0.07 above his baseline of 0.03. * pCXR Impression: Cardiomegaly with pulmonary congestion.. * 06/11/2017 2D ECHO Conclusions: Left ventricular size is moderate to severely dilated, estimated EF 20-25%, abnormal LV diastolic filling, cw impaired relaxation, mild AR, no , mild to moderate MR, no MS, trace TR, trivial pericardial effusion. -Acute on chronic decompensated combined heart failure: Consult Cardiology, complex medical decision making in treating with more IV lasix as may worsen renal function. Ordered ECHO, repeat Troponin and EKG, automobile club travel counselor on fluid restriction. -ARF/CKD 4, due to vasomotor nephropathy, suspect progression to ESRD will defer to Nephrology, possible Cardiorenal syndrome also: Consulted Nephrology to evaluated for Hemodialysis, watch bmp closely -Hypertension with heart disease, accelerated, uncontrolled: add Imdur -IDDM: add SSI, get A1c -NICMP: order ECHO -DVT prophylaxis: sq heparin watch cbc closely -Home reconciliation done Full code CCT 35 minutes
[2019-01-10] MEDS ORDERED: COREG ONE ×2 (11:52→21:54)
[2019-01-10] MEDS ORDERED: BABY ASPIRIN ONE (11:52)
[2019-01-10] MEDS: COREG PO SCH ×2 (11:52→21:52)
[2019-01-10] MEDS: HALFPRIN EC PO SCH (11:53)
[2019-01-10] MEDS: IMDUR PO SCH (12:17)
[2019-01-10] MEDS: APRESOLINE PO SCH ×2 (14:45→20:00)
--- NOTE | 2019-01-10 14:58 | Consultation ---
History of Present Illness - Reason for Consult chronic renal failure - History of Present Illness 48-year-old gentleman with medical history significant for hypertension long- standing, diabetes mellitus type 2 long-standing, chronic kidney disease stage IV last seen Dr. Rice in 2017 presents to the hospital with complaints of once the shortness of breath orthopnea and PND he also admits to lower extremity swelling. He admits to nausea and vomiting poor appetite he admits to metallic taste in his mouth he admits to itching. Reports shortness of breath has been worse in the past 3 weeks denies any fevers chills have some intermittent cough he's on Lasix 40 mg twice a day. Past History Past Medical History: diabetes, hypertension, renal failure Social history: . denies: alcohol abuse Family history: hypertension Medications and Allergies Allergies Allergy/AdvReac Type Severity Reaction Status Date / Time No Known Allergies Allergy Verified 09/12/17 11:30 Home Medications Medication Instructions Recorded Confirmed Last Taken Type Carvedilol [Coreg] 25 mg PO BID #60 tablet 06/13/17 01/10/19 09/12/17 Rx Furosemide [Lasix TAB] 20 mg PO BID #60 tablet 06/13/17 01/10/19 09/12/17 Rx Insulin NPH/Regular [NovoLIN 70/30] 36 unit SUB-Q BIDDIAB 09/12/17 01/10/19 09/12/17 History Aspirin EC [Aspirin Enteric Coated 81 mg PO QDAY #30 tablet. 09/13/17 01/10/19 Unknown Rx TAB] Famotidine [Pepcid] 20 mg PO QAM #15 tablet 09/13/17 01/10/19 Unknown Rx hydrALAZINE [Apresoline TAB] 50 mg PO TID 01/10/19 01/10/19 Unknown History Active Meds: Active Medications Aspirin (Halfprin Ec) 81 mg PO QDAY [facility] Last Admin: 01/10/19 11:53 Dose: 81 mg Documented by: Carvedilol (Coreg) 25 mg PO BID [facility] Last Admin: 01/10/19 11:52 Dose: 25 mg Documented by: Famotidine (Pepcid) 20 mg PO QAM [facility] Furosemide (Lasix) 80 mg IV 0400,1600 [facility] Hydralazine HCl (Apresoline) 50 mg PO TID [facility] Last Admin: 01/10/19 14:45 Dose: 50 mg Documented by: Furosemide 100 mg/ Sodium (Chloride) 60 mls @ 100 mls/hr IV ONCE ONE Stop: 01/10/19 15:26 Insulin Human Isoph/Insulin Regular (Humulin 70/30) 20 unit SUB-Q BIDDIAB [facility] Isosorbide Mononitrate (Imdur) 30 mg PO QDAY [facility] Last Admin: 01/10/19 12:17 Dose: 30 mg Documented by: Review of Systems Constitutional: weight loss, anorexia, fatigue, weakness, poor appetite Ears, nose, mouth and throat: no deferred, no ear discharge Cardiovascular: orthopnea, edema, shortness of breath, paroxysmal nocturnal dyspnea, leg edema, no chest pain Respiratory: cough, no hemoptysis, no home oxygen Gastrointestinal: nausea, vomiting, no abdominal pain, no diarrhea Genitourinary Male: no dysuria, no hematuria Rectal: no pain, no itching Musculoskeletal: myalgias, no neck stiffness Integumentary: no rash, no jaundice Neurological: no head injury, no seizures, no ataxia Psychiatric: no anxiety, no memory loss Endocrine: no cold intolerance, no heat intolerance Hematologic/Lymphatic: no easy bruising Allergic/Immunologic: no persistent infections, no angioedema Exam - Vital Signs Vital signs: Vital Signs Temp Pulse Resp BP Pulse Ox 98.2 F 84 18 179/108 94 01/10/19 05:01 01/10/19 05:01 01/10/19 05:01 01/10/19 05:01 01/10/19 05:01 - General Appearance General appearance: well-developed, well-nourished EENT: ATNC, PERRL Neck: Present: neck supple, JVD/HJR Respiratory: Rales, Ronchi Heart: regular, S1S2, other (edema) Gastrointestinal: Present: normal, normoactive bowel sounds Integumentary: no rash Neurologic: alert and oriented x3, CN 3-12 intact Musculoskeletal: Present: joint swelling Psychiatric: mood/affect appropriate Results - Lab Results 01/10/19 05:39 01/10/19 05:46 Most recent lab results Calcium 7.7 mg/dL (8.4-10.2) L 01/10/19 05:46 - Image Kidney/bladder ultrasound: other (i reviewed CXR with pulmonary edema.) Assessment and Plan - Patient Problems (1) End stage renal disease Current Visit: Yes Status: Acute Plan to address problem: End-stage renal disease Has significant chronic kidney disease stage IV last creatinine was 4.4 in 2017 Now presented with creatinine of 9.6 Has also had hypertension and diabetes Obtain urinalysis Etiology of kidney failure is most likely long-standing diabetic nephropathy Renal ultrasound pending We'll consult vascular surgery for PermCath placement Extensive discussion with the patient regarding modes of dialysis as well as renal transplantation He is agreeable with PermCath placement emphasized. I emphasized patient should attend kidney Smart class Further information on peritoneal dialysis before deciding on hemodialysis long-term We'll give Lasix 100 mg 1 (2) Pulmonary edema Current Visit: Yes Status: Acute Plan to address problem: pulmonary edema in setting of renal failure we'll give Lasix 100 mg 1 will plan on initiating hemodialysis in the a.m. (3) Hypertension, uncontrolled Current Visit: No Status: Acute Plan to address problem: Hypertension uncontrolled Continue medications We'll initiate dialysis (4) Anemia Current Visit: Yes Status: Acute Plan to address problem: Mild anemia with chronic kidney disease Obtain anemia panel hemoglobin 11.5 g/dl l (5) Metabolic acidosis with increased anion gap and reduced excretion of inorganic acids Current Visit: Yes Status: Acute Plan to address problem: Mild metabolic acidosis we'll reported a bicarbonate for now given her volume overload We'll need dialysis in the a.m.
[2019-01-10] MEDS ORDERED: LASIX 100 MG in NACL 0.9% 50 ML IV ONE (16:00)
--- NOTE | 2019-01-10 16:59 | Ultrasound Report ---
PROCEDURE: US RENAL BILAT TECHNIQUE: Transverse longitudinal sonograms obtained with staton scale sonography HISTORY: ARF COMPARISONS: None FINDINGS: Right kidney measures 1.3 x 5.9 x 5.5 cm. Cortex 1.4 cm. Normal cortical thickness. There is increase d cortical echogenicity Cyst superior pole measuring 1.2 x 0.9 x 1.0 cm. Mild hydronephrosis. Left kidney measures 11.0 x 4.1 x 4.4 cm. Cortex 1.4 cm. Normal cortical thickness . Increased cortic al echogenicity. No hydronephrosis. Bladder appears unremarkable IMPRESSION: Both kidneys demonstrate increased cortical echogenicity which can be seen with medical renal disease Mild right hydronephrosis. This document is electronically signed by Homer Byrd MD., January 10 2019 04:57:58 PM ET
[2019-01-10] MEDS ORDERED: APRESOLINE ONE (19:55)
[2019-01-11] MEDS: LASIX IV SCH ×2 (05:00→17:00)
[2019-01-11] MEDS: APRESOLINE PO SCH ×3 (08:00→20:00)
[2019-01-11] MEDS ORDERED: PEPCID PO SCH (10:00)
[2019-01-11] MEDS: IMDUR PO SCH (10:00)
[2019-01-11] MEDS: HALFPRIN EC PO SCH (10:00)
--- NOTE | 2019-01-11 10:00 | Progress Note ---
Assessment and Plan Impression * End-stage renal disease * Congestive heart failure * Uremia * Hypertension * Diabetes Recommendations * Patient has end-stage renal disease. His serum creatinine was 4.4 back in 2017. He is also volume overloaded and has uremic symptoms * Renal ultrasound shows bilateral echogenic kidneys. No hydronephrosis * Need to initiate dialysis. He is scheduled to have a PermCath placed this morning * Plan to dialyze him after access placement * He will also require permanent dialysis access as well * Consult case management for outpatient dialysis arrangement Subjective Date of service: 01/11/19 Interval history: Patient is comfortable this morning. Shortness of breath seems to be improving. He does however complain of nausea. Leg edema is improving Objective - Vital Signs Vital signs: Vital Signs - 12hr 01/10/19 01/10/19 01/11/19 22:00 23:08 01:43 Temperature 98.0 F Pulse Rate 82 82 Respiratory 18 18 Rate Blood Pressure 155/91 135/77 O2 Sat by Pulse 99 98 Oximetry 01/11/19 01/11/19 04:47 07:41 Temperature 98.0 F 98.1 F Pulse Rate 84 81 Respiratory 18 18 Rate Blood Pressure 161/91 170/96 O2 Sat by Pulse 94 94 Oximetry - General Appearance General appearance: well-developed, well-nourished, appears stated age EENT: PERRL, mucous membranes moist Neck: no JVD, no thyromegaly, no carotid bruit, supple Respiratory: Present: Clear to Ascultation, Decreased Breath Sounds (at the bases) Cardiology: regular, normal heart rate, S1S2, no murmurs Gastrointestinal: normal, normoactive bowel sounds Integumentary: other (1+ edema) - Lab 01/10/19 05:39 01/10/19 05:46 Most recent lab results Calcium 7.7 mg/dL (8.4-10.2) L 01/10/19 05:46 Medications & Allergies - Medications Allergies/Adverse Reactions: Allergies No Known Allergies Allergy (Verified 09/12/17 11:30) Home Medications: Home Medications Medication Instructions Recorded Confirmed Last Taken Type Carvedilol [Coreg] 25 mg PO BID #60 tablet 06/13/17 01/10/19 09/12/17 Rx Furosemide [Lasix TAB] 20 mg PO BID #60 tablet 06/13/17 01/10/19 09/12/17 Rx Insulin NPH/Regular [NovoLIN 70/30] 36 unit SUB-Q BIDDIAB 09/12/17 01/10/19 09/12/17 History Aspirin EC [Aspirin Enteric Coated 81 mg PO QDAY #30 tablet.dr 09/13/17 01/10/19 Unknown Rx TAB] Famotidine [Pepcid] 20 mg PO QAM #15 tablet 09/13/17 01/10/19 Unknown Rx hydrALAZINE [Apresoline TAB] 50 mg PO TID 01/10/19 01/10/19 Unknown History Active Medications: Generic Name Dose Route Start Last Admin Trade Name Freq PRN Reason Stop Dose Admin Aspirin 81 mg 01/10/19 11:00 01/10/19 11:53 Halfprin Ec PO 81 mg QDAY [facility] Administration Carvedilol 25 mg 01/10/19 11:00 01/10/19 21:52 Coreg PO 25 mg BID [facility] Administration Famotidine 20 mg 01/11/19 10:00 Pepcid PO QAM [facility] Furosemide 80 mg 01/11/19 04:00 01/11/19 05:00 Lasix IV 80 mg 0400,1600 [facility] Administration Hydralazine HCl 50 mg 01/10/19 14:00 01/10/19 20:00 Apresoline PO 50 mg TID [facility] Administration Insulin Human Isoph/Insulin Regular 20 unit 01/10/19 17:00 01/11/19 08:00 Humulin 70/30 SUB-Q Not Given BIDDIAB [facility] Isosorbide Mononitrate 30 mg 01/10/19 12:00 01/10/19 12:17 Imdur PO 30 mg QDAY [facility] Administration
[2019-01-11] MEDS ORDERED: NACL 0.9% 100 ML IV PRN (10:30)
[2019-01-11] MEDS: COREG PO SCH ×2 (11:00→22:00)
--- NOTE | 2019-01-11 11:38 | Consultation ---
History of Present Illness Consult date: 01/11/19 Requesting physician: ARI SANCHEZ Consult reason: congestive heart failure, known to you History of present illness: The pt is a 48 YO male with a past medical history of severe NICMP, CKD, HTN, DM. He has been seen in our office in the past by Dr. JARRETT Tovar. He presented with c/o progressively worsening SOB, orthopnea, BLE edema and dry cough for approx 3 weeks prior to arrival. He has subsequently been diagnosed with ESRD and is pending dialysis access placement for initiation of HD. Cardiology has been consulted for HF. Pt reports compliance with his home medication regimen, including coreg and lasix, although he admits that he has not seen a residential mental health worker in about a year. Of note, pt was discharged home with LifeVest in 06/2017 and he states that the vest was returned due to insurance issues. He has yet to be evaluated for AICD candidacy as OP. Echo done 06/11/2017 showed EF 20-25%, impaired relaxation, LV mod to severely dilated, mild to mod MR, trace TR. Lexiscan MPI stress test done 09/2017 was negative for ischemia, EF 40%. Past History Past Medical History: diabetes, heart failure, hypertension, renal failure Social history: . denies: alcohol abuse Family history: hypertension Medications and Allergies Allergies Allergy/AdvReac Type Severity Reaction Status Date / Time No Known Allergies Allergy Verified 09/12/17 11:30 Home Medications Medication Instructions Recorded Confirmed Last Taken Type Carvedilol [Coreg] 25 mg PO BID #60 tablet 06/13/17 01/10/19 09/12/17 Rx Furosemide [Lasix TAB] 20 mg PO BID #60 tablet 06/13/17 01/10/19 09/12/17 Rx Insulin NPH/Regular [NovoLIN 70/30] 36 unit SUB-Q BIDDIAB 09/12/17 01/10/19 09/12/17 History Aspirin EC [Aspirin Enteric Coated 81 mg PO QDAY #30 tablet. 09/13/17 01/10/19 Unknown Rx TAB] Famotidine [Pepcid] 20 mg PO QAM #15 tablet 09/13/17 01/10/19 Unknown Rx hydrALAZINE [Apresoline TAB] 50 mg PO TID 01/10/19 01/10/19 Unknown History Active Meds: Active Medications Aspirin (Halfprin Ec) 81 mg PO QDAY [facility] Last Admin: 01/11/19 10:00 Dose: Not Given Documented by: Carvedilol (Coreg) 25 mg PO BID [facility] Last Admin: 01/11/19 11:00 Dose: 25 mg Documented by: Famotidine (Pepcid) 20 mg PO QAM [facility] Last Admin: 01/11/19 11:00 Dose: Not Given Documented by: Furosemide (Lasix) 80 mg IV 0400,1600 [facility] Last Admin: 01/11/19 05:00 Dose: 80 mg Documented by: Hydralazine HCl (Apresoline) 50 mg PO TID [facility] Last Admin: 01/11/19 08:00 Dose: Not Given Documented by: Sodium Chloride (Nacl 0.9%) 100 mls @ 999 mls/hr IV AFUA PRN PRN Reason: Hypotension Insulin Human Isoph/Insulin Regular (Humulin 70/30) 20 unit SUB-Q BIDDIAB [facility] Last Admin: 01/11/19 08:00 Dose: Not Given Documented by: Isosorbide Mononitrate (Imdur) 30 mg PO QDAY [facility] Last Admin: 01/11/19 10:00 Dose: Not Given Documented by: Review of Systems Constitutional: no fever, no chills, no sweats Ears, nose, mouth and throat: no ear pain, no nose pain, no sinus pressure, no sinus pain Cardiovascular: orthopnea, edema, shortness of breath, dyspnea on exertion, paroxysmal nocturnal dyspnea, high blood pressure, leg edema, decreased exercise tolerance, no chest pain, no palpitations, no rapid/irregular heart beat, no syncope, no lightheadedness Respiratory: cough, shortness of breath, dyspnea on exertion, no cough with sputum, no congestion, no wheezing, no pain on inspiration Gastrointestinal: no abdominal pain, no nausea, no vomiting, no diarrhea, no constipation, no change in bowel habits Genitourinary Male: no dysuria, no hematuria, no flank pain, no discharge, no urinary frequency, no urinary hesitancy Musculoskeletal: no neck stiffness, no neck pain, no shooting arm pain, no arm numbness/tingling, no low back pain, no shooting leg pain Integumentary: no rash, no pruritis, no redness, no sores, no wounds Neurological: no head injury, no paralysis, no weakness, no parathesias, no numbness, no tingling, no seizures, no syncope Psychiatric: no anxiety Endocrine: no cold intolerance, no heat intolerance Hematologic/Lymphatic: no easy bruising, no easy bleeding Allergic/Immunologic: no urticaria, no wheezing Physical Examination Vital Signs Temp Pulse Resp BP Pulse Ox 98.2 F 84 18 179/108 94 01/10/19 05:01 01/10/19 05:01 01/10/19 05:01 01/10/19 05:01 01/10/19 05:01 General appearance: no acute distress HEENT: Positive: PERRL, Normocephaly, Mucus Membranes Moist Neck: Positive: neck supple, trachea midline Cardiac: Positive: Reg Rate and Rhythm, S1/S2 Lungs: Positive: Decreased Breath Sounds Neuro: Positive: Grossly Intact Abdomen: Positive: Soft. Negative: Tender Skin: Negative: Rash Musculoskeletal: No Pain Extremities: Present: +1 Edema (BLE) Results 01/10/19 05:39 01/10/19 05:46 - Imaging and Cardiology Echo: pending, report reviewed ( 06/11/2017 showed EF 20-25%, impaired relaxation, LV mod to severely dilated, mild to mod MR, trace TR. ) EKG: report reviewed, image reviewed EKG interpretations - Telemetry EKG Rhythm: Sinus Rhythm - EKG Sinus rhythms and dysrhythmias: sinus rhythm Chamber hypertrophy or enlargement: left ventricular hypertro Repolarization changes or abnormalities: repolarization abn secondary to ventricular hypertrophy Assessment and Plan Agree with present cardiac regimen. Volume optimization per nephrology. No ACEI/ARB at this time in setting of renal insufficiency. Mild troponin elevation currently nonspecific. Await echo. The patient has been seen in conjunction with Dr. Moreno who agrees with the assessment and plan of care. - Patient Problems (1) Acute HFrEF (heart failure with reduced ejection fraction) Current Visit: Yes Status: Acute (2) Acute on chronic renal failure Current Visit: Yes Status: Acute (3) Accelerated hypertension Current Visit: Yes Status: Chronic (4) NSVT (nonsustained ventricular tachycardia) Current Visit: Yes Status: Acute (5) Diabetes mellitus Current Visit: Yes Status: Chronic Qualifiers: Diabetes mellitus type: type 2 Diabetes mellitus complication status: with kidney complications (6) Elevated troponin Current Visit: Yes Status: Acute
[2019-01-11] MEDS ORDERED: NACL 0.9% 250ML 250 ML IV ONE (13:30)
[2019-01-11] MEDS ORDERED: NACL 0.9% 250ML 250 ML ONE (13:37)
[2019-01-11] MEDS ORDERED: XYLOCAINE 1%/ EPI 1:100,000 INFILTRATI ONE (13:47)
[2019-01-11] MEDS ORDERED: HEPARIN/NS 5000 UNIT/500ML(CATH LAB) 500 ML IR ONE (13:47)
[2019-01-11] MEDS ORDERED: VERSED ONE (13:48)
[2019-01-11] MEDS ORDERED: SUBLIMAZE ONE (13:48)
[2019-01-11] MEDS ORDERED: ANCEF/STERILE WATER 2 GM/20 ML 2 GM/20 ML SYRINGE IV ONE (13:49)
[2019-01-11] MEDS: HEPARIN 10,000 UNITS/10 ML ONE ×2 (14:55→14:56)
--- NOTE | 2019-01-11 15:03 | Progress Note ---
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 His PCP is Dr. Torre/Belinda, Systems Accountant is Dr. Imtiaz Tovar and his Fast Food Attendant is Dr. Zhang. He is being admitted for AE CHF and worsening CKD needing initiation of HD with ultrafiltration to treat the CHF. * pro-BNP elevated at 4890, O2 sats 94% on room air. Renal function shows BUN of 64 and creatinine of 9.6, potassium is normal. Troponin mildly elevated at 0.07 above his baseline of 0.03. * pCXR Impression: Cardiomegaly with pulmonary congestion.. * 06/11/2017 2D ECHO Conclusions: Left ventricular size is moderate to severely dilated, estimated EF 20-25%, abnormal LV diastolic filling, cw impaired relaxation, mild AR, no , mild to moderate MR, no MS, trace TR, trivial pericardial effusion. -Acute on chronic decompensated combined heart failure: Cardiology following, Ordered ECHO, repeat Troponin and EKG, primary counselor on fluid restriction. -ARF/CKD 4, due to vasomotor nephropathy, suspect progression to ESRD, possible Cardiorenal syndrome also: d/w Nephrology for Hemodialysis, watch bmp closely -Hypertension with heart disease, accelerated, uncontrolled: added Imdur -IDDM: add SSI, get A1c -NICMP: order ECHO -DVT prophylaxis: sq heparin watch cbc closely -Home reconciliation done Full code ECHO pending Set up HD with vas cath then hemodialysis today. History Interval history: Patient was seen and examined. Follow-up on current diagnosis of CHF and worsening CKD to ESRD. Overnight uneventful. Patient denies any chest pain, nausea/vomiting or severe headaches. Imaging, nursing note, chart, labs and old chart reviewed. Discussed with patient. SOB is better Hospitalist Physical - Physical exam Narrative exam: Gen: WDWN, NAD, Awake, Alert, Orientated HEENT: NCAT, EOMI, PERRL, OP Clear Neck: supple, no adenopathy, no thyromegaly, + JVD CVS/Heart: RRR, normal S1S2, pulses present bilaterally Chest/Lungs: bilateral crackles, Symmetrical chest expansion, good air entry bilaterally GI/Abdomen: soft, NTND, good bowel sounds, no guarding or rebound /Bladder: no suprapubic tenderness, no CVA or paraspinal tenderness Extermity/Skin: BLE edema, no obvious rash MSK: FROM x 4 Neuro: CN 2-12 grossly intact, no new focal deficits Psych: calm - Constitutional Vitals: Temp Pulse Resp BP Pulse Ox 98.7 F 79 26 H 180/52 95 01/11/19 13:19 01/11/19 13:45 01/11/19 13:45 01/11/19 13:45 01/11/19 13:45 General appearance: Present: no acute distress Results - Labs CBC & Chem 7: 01/10/19 05:39 01/10/19 05:46 Labs: Laboratory Last Values WBC 6.5 K/mm3 (4.5-11.0) 01/10/19 05:39 RBC 4.00 M/mm3 (3.65-5.03) 01/10/19 05:39 Hgb 11.2 gm/dl (11.8-15.2) L 01/10/19 05:39 Hct 33.9 % (35.5-45.6) L 01/10/19 05:39 MCV 85 fl (84-94) 01/10/19 05:39 MCH 28 pg (28-32) 01/10/19 05:39 MCHC 33 % (32-34) 01/10/19 05:39 RDW 14.1 % (13.2-15.2) 01/10/19 05:39 Plt Count 195 K/mm3 (140-440) 01/10/19 05:39 Lymph % (Auto) 20.9 % (13.4-35.0) 01/10/19 05:39 Centre % (Auto) 7.0 % (0.0-7.3) 01/10/19 05:39 Eos % (Auto) 3.9 % (0.0-4.3) 01/10/19 05:39 Baso % (Auto) 1.0 % (0.0-1.8) 01/10/19 05:39 Lymph # 1.4 K/mm3 (1.2-5.4) 01/10/19 05:39 Centre # 0.5 K/mm3 (0.0-0.8) 01/10/19 05:39 Eos # 0.3 K/mm3 (0.0-0.4) 01/10/19 05:39 Baso # 0.1 K/mm3 (0.0-0.1) 01/10/19 05:39 Seg Neutrophils % 67.2 % (40.0-70.0) 01/10/19 05:39 Seg Neutrophils # 4.4 K/mm3 (1.8-7.7) 01/10/19 05:39 PT 13.8 Sec. (12.2-14.9) 01/10/19 07:30 INR 1.00 (0.87-1.13) 01/10/19 07:30 APTT 20.0 Sec. (24.2-36.6) L 01/10/19 07:30 Sodium 137 mmol/L (137-145) 01/10/19 05:46 Potassium 4.8 mmol/L (3.6-5.0) 01/10/19 05:46 Chloride 102.3 mmol/L (98-107) 01/10/19 05:46 Carbon Dioxide 20 mmol/L (22-30) L 01/10/19 05:46 Anion Gap 20 mmol/L 01/10/19 05:46 BUN 64 mg/dL (9-20) H 01/10/19 05:46 Creatinine 9.6 mg/dL (0.8-1.5) H 01/10/19 05:46 Estimated GFR 7 ml/min 01/10/19 05:46 BUN/Creatinine Ratio 7 % 01/10/19 05:46 Glucose 171 mg/dL (75-100) H 01/10/19 05:46 POC Glucose 121 (70-105) H 01/11/19 08:18 Calcium 7.7 mg/dL (8.4-10.2) L 01/10/19 05:46 Total Bilirubin 0.20 mg/dL (0.1-1.2) 01/10/19 05:46 AST 24 units/L (5-40) 01/10/19 05:46 ALT 30 units/L (7-56) 01/10/19 05:46 Alkaline Phosphatase 81 units/L (35-129) 01/10/19 05:46 Troponin T 0.068 ng/mL (0.00-0.029) H 01/10/19 18:46 NT-Pro-B Natriuret Pep 4890 pg/mL (0-450) H 01/10/19 05:39 Total Protein 6.9 g/dL (6.3-8.2) 01/10/19 05:46 Albumin 3.5 g/dL (3.9-5) L 01/10/19 05:46 Albumin/Globulin Ratio 1.0 % 01/10/19 05:46 Triglycerides 101 mg/dL (2-149) 01/10/19 07:30 Cholesterol 151 mg/dL (50-199) 01/10/19 07:30 LDL Cholesterol Direct 105 mg/dL (50-130) 01/10/19 07:30 HDL Cholesterol 44 mg/dL (40-59) 01/10/19 07:30 Cholesterol/HDL Ratio 3.43 % 01/10/19 07:30 PTH Intact 583.6 pg/mL (15-65) H 01/10/19 15:34 Hep Bs Antigen Non-reactive (Negative) 01/10/19 15:34 Hepatitis C Antibody Non-reactive (NonReactive) 01/10/19 15:34 Active Medications - Current Medications Current Medications: Generic Name Dose Route Start Last Admin Trade Name Freq PRN Reason Stop Dose Admin Aspirin 81 mg 01/10/19 11:00 01/11/19 10:00 Halfprin Ec PO Not Given QDAY [facility] Carvedilol 25 mg 01/10/19 11:00 01/11/19 11:00 Coreg PO 25 mg BID [facility] Administration Famotidine 20 mg 01/11/19 10:00 01/11/19 11:00 Pepcid PO Not Given QAM [facility] Furosemide 80 mg 01/11/19 04:00 01/11/19 05:00 Lasix IV 80 mg 0400,1600 [facility] Administration Hydralazine HCl 50 mg 01/10/19 14:00 01/11/19 08:00 Apresoline PO Not Given TID [facility]ES[facility] Sodium Chloride 100 mls @ 999 mls/hr 01/11/19 10:30 Nacl 0.9% IV AFUA PRN Hypotension Sodium Chloride 250 mls @ 50 mls/hr 01/11/19 13:30 Nacl 0.9% 250ml IV 01/11/19 18:29 ONCE ONE Insulin Human Isoph/Insulin Regular 20 unit 01/10/19 17:00 01/11/19 08:00 Humulin 70/30 SUB-Q Not Given BIDDIAB [facility] Isosorbide Mononitrate 30 mg 01/10/19 12:00 01/11/19 10:00 Imdur PO Not Given QDAY [facility]
--- NOTE | 2019-01-11 15:07 | Operative Report ---
Operative Report Operative Report: Date of procedure: 01/11/2019 Pre-operative diagnosis: ESRD Post-operative diagnosis: same Procedure name(s): 1. US guided puncture of the right internal jugular vein 2. Placement of right internal jugular permacath (Glidepath 23cm) 3. Fluoroscopic supervision Surgeon: Ruiz Martinez MD, FACS Electricity Trader: none Anesthesia: local with sedation; Sedation start: 1443 Sedation end: 1502 Total sedation time: 19 minutes or 2 anesthesia units EBL: minimal Operative indication: Patient is a 48 yo and who requires hemodialysis access. Findings: Good flow from both ports. Catheter located at the cavoatrial junction. Procedure: The patient was placed on the table in the supine position. The area over the right neck and chest was prepped with ChloraPrep solution and draped in usual sterile fashion. 2% lidocaine was used for local anesthesia. Under real-time ultrasound guidance the right internal jugular vein was identified and cannulated. A guidewire was advanced into the central circulation. A tunnel was made over the anterior chest using the tunneling device in the kit. A stiff guidewire was placed with the tip in the inferior vena cava. The catheter was then tunneled between the 2 incisions. Using a series of dilators, the track into the jugular vein was dilated. The introducer sheath was then placed. The catheter was placed through the introducer sheath which was then removed. The catheter tip was placed at the cavoatrial junction. The catheters were aspirated with excellent flow from both ports. Both ports flushed easily. They were then filled to their stated volume with 1000 unit per milliliter heparin. Closure at the insertion site was done with 4-0 subcuticular PDS. The catheter was sewn to the skin with 2-0 Proline. Sterile dressings were applied. The patient tolerated the procedure well.
[2019-01-11] MEDS ORDERED: ZOFRAN ONE (15:16)
[2019-01-11 23:08] VITALS: BP 160/98
[2019-01-11] MEDS ORDERED: NACL 0.9 (PRIMING MACHINE ONLY DIALYSIS) MC ONE (23:55)
--- NOTE | 2019-02-02 16:46 | Discharge Summary ---
Providers - Providers Date of Admission: 01/10/19 08:21 Attending physician: ARI SANCHEZ 01/10/19 10:44 Consult to Physician [CONS] Routine Comment: Consulting Provider: JANESSA DYE Physician Instructions: Reason For Exam: Evaluate for ESRD, pt known to you 01/10/19 10:45 Consult to Physician [CONS] Routine Comment: Consulting Provider: CECILIO VALIENTE Physician Instructions: Reason For Exam: CHF management, pt known to you 01/10/19 15:06 Consult to Physician [CONS] Routine Comment: Consulting Provider: ABELINO NASSAR Physician Instructions: Reason For Exam: Perm cath placement 01/11/19 10:03 Consult to Case Management [CONS] Routine Services Needed at Discharge: Other Notified:: GAMEMASTER Comment:: outpatient dialysis Primary care physician: JANESSA DYE Hospitalization Condition: Stable Hospital course: Patient is a 48-yo Black man with a history of 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 His PCP is Dr. Torre/Belinda, Child Health Associate is Dr. Imtiaz Valiente and his Delinquent Tax Collector is Dr. Dye. He is being admitted for AE CHF and worsening CKD needing initiation of HD with ultrafiltration to treat the CHF. * pro-BNP elevated at 4890, O2 sats 94% on room air. Renal function shows BUN of 64 and creatinine of 9.6, potassium is normal. Troponin mildly elevated at 0.07 above his baseline of 0.03. * pCXR Impression: Cardiomegaly with pulmonary congestion.. * 06/11/2017 2D ECHO Conclusions: Left ventricular size is moderate to severely dilated, estimated EF 20-25%, abnormal LV diastolic filling, cw impaired r elaxation, mild AR, no , mild to moderate MR, no MS, trace TR, trivial pericardial effusion. -Acute on chronic decompensated combined heart failure: Cardiology following, O rdered ECHO, repeat Troponin and EKG, consumer credit counselor on fluid restriction. -ARF/CKD 4, due to vasomotor nephropathy, suspect progression to ESRD, possible Cardiorenal syndrome also: d/w Nephrology for Hemodialysis, watch bmp closely -Hypertension with heart disease, accelerated, uncontrolled: added Imdur -IDDM: add SSI, get A1c -NICMP: order ECHO -DVT prophylaxis: sq heparin watch cbc closely -Home reconciliation done Full code ECHO pending Set up HD with vas cath then hemodialysis today. I wasn't aware that patient was discharged on 01/11/19 because the patient was discharge by Dr. Kaiser. Nonetheless, I was asked to write this discharge summary. Disposition: DC-01 TO HOME OR SELFCARE Core Measure Documentation - Palliative Care Palliative Care/ Comfort Measures: Not Applicable - Core Measures Any of the following diagnoses?: none - VTE Discharge Requirements Deep Vein Thrombosis/Pulmonary Embolism Present on Admission: No Has pt received <5 days of overlap therapy or INR<2.0: No Anticoagulant overlap therapy prescribed at discharge: No Contraindication No Overlap Therapy order at DC: Not Indicated Exam - Constitutional Vitals: Temp Pulse Resp BP Pulse Ox 98.0 F 84 18 160/98 98 01/11/19 21:50 01/11/19 21:50 01/11/19 21:50 01/11/19 21:50 01/11/19 16:03 Plan Follow up with: JANESSA DYE MD [Primary Care Provider] - 3-5 Days IMTIAZ VALIENTE MD [Staff Physician] - 7 Days
== END 2019-01-11 22:50 | disposition home or self-care (01) | DRG 673 ==
LOC: ED 04:57 → 4A 08:21
PROVIDERS: ADMIT Internal Medicine; ATTEND Internal Medicine
PROC: 0JH63XZ Insertion of Tunneled Vascular Access Device into Chest Subcutaneous Tissue and Fascia, Percutaneous Approach (ICD-10-PCS; principal; 2019-01-11)
PROC: 02HV33Z Insertion of Infusion Device into Superior Vena Cava, Percutaneous Approach (ICD-10-PCS; 2019-01-11)
PROC: B5181ZA Fluoroscopy of Superior Vena Cava using Low Osmolar Contrast, Guidance (ICD-10-PCS; 2019-01-11)
PROC: B548ZZA Ultrasonography of Superior Vena Cava, Guidance (ICD-10-PCS; 2019-01-11)
PROC: 5A1D70Z Performance of Urinary Filtration, Intermittent, Less than 6 Hours Per Day (ICD-10-PCS; 2019-01-11)
DX: N17.0 Acute kidney failure with tubular necrosis (principal); I50.43 Acute on chronic combined systolic (congestive) and diastolic (congestive) heart failure; I13.2 Hypertensive heart and chronic kidney disease with heart failure and with stage 5 chronic kidney disease, or end stage renal disease; E87.2 Acidosis; I47.2 Ventricular tachycardia; N18.6 End stage renal disease; D63.1 Anemia in chronic kidney disease; H91.92 Unspecified hearing loss, left ear; E11.22 Type 2 diabetes mellitus with diabetic chronic kidney disease; Z79.4 Long term (current) use of insulin; Z90.89 Acquired absence of other organs; Z82.49 Family history of ischemic heart disease and other diseases of the circulatory system; Z83.3 Family history of diabetes mellitus; Z79.82 Long term (current) use of aspirin
CPT/HCPCS: 36415; 36558; 71045; 76770; 76937; 77001; 80053; 80061; 82962; 83880; 83970; 84484; 85025; 85610; 85730; 86706; 86803; 93005; 93010; 93306; 96374; G0378; C1750; C1769; J0360; J0690; J1644; J1815; J1940; J2250; J2405; J3010; J7030; J7050; Q9967

== ENCOUNTER 2019-01-13 14:12 | Inpatient (IN) | payer OTHER ==
[2019-01-13] MEDS ORDERED: PROVENTIL IH PRN (14:15)
[2019-01-13] MEDS ORDERED: TYLENOL PO PRN (14:15)
[2019-01-13] MEDS ORDERED: ZOFRAN IV PRN (14:15)
[2019-01-13] MEDS ORDERED: SODIUM CHLORIDE FLUSH SYRINGE 10 ML IV PRN (14:15)
--- NOTE | 2019-01-13 14:18 | History and Physical Report ---
History of Present Illness Chief complaint: I need dialysis History of present illness: 48 YO Male with HTN, Systolic CHF(EF 35%), DM, ESRD on HD(M,W,F), Metabolic Syndrome Admitted directly at the request of vascular Surgery Service. Pt seen and evaluated upon arrival. Pt states that he has experienced mild shortness of breath for the past 1 day but otherwise has no complaints. Pt denies fever, chills, palpitations, NVD, syncope, prolonged travel/immobility, individual/family history of DVT/PE, hemoptysis, syncope, productive cough, or recent ill contacts. Pt seen and evaluated and found to have ESRD. Past History Past Medical History: diabetes, ESRD, heart failure, hypertension Past Surgical History: tonsillectomy, Other (dialysis access, lumbar puncture, cardiac cath) Social history: . denies: smoking, alcohol abuse, prescription drug abuse Family history: diabetes, hypertension Medications and Allergies Allergies Allergy/AdvReac Type Severity Reaction Status Date / Time No Known Allergies Allergy Verified 09/12/17 11:30 Home Medications Medication Instructions Recorded Confirmed Last Taken Type Carvedilol [Coreg] 25 mg PO BID #60 tablet 06/13/17 01/13/19 01/13/19 09:00 Rx Furosemide [Lasix TAB] 20 mg PO BID #60 tablet 06/13/17 01/13/19 01/13/19 09:00 Rx Insulin NPH/Regular [NovoLIN 70/30] 36 unit SUB-Q BIDDIAB 09/12/17 01/13/19 01/12/19 21:00 History Aspirin EC [Aspirin Enteric Coated 81 mg PO QDAY #30 tablet. 09/13/17 01/13/19 01/13/19 09:00 Rx TAB] Famotidine [Pepcid] 20 mg PO QAM #15 tablet 09/13/17 01/13/19 01/13/19 09:00 Rx hydrALAZINE [Apresoline TAB] 50 mg PO TID 01/10/19 01/13/19 01/13/19 08:00 History Active Meds: Active Medications Acetaminophen (Tylenol) 650 mg PO Q4H PRN PRN Reason: Pain MILD(1-3)/Fever >100.5/CARTAGENA Albuterol (Proventil) 2.5 mg IH Q4HRT PRN PRN Reason: Shortness Of Breath Ondansetron HCl (Zofran) 4 mg IV Q8H PRN PRN Reason: Nausea And Vomiting Sodium Chloride (Sodium Chloride Flush Syringe 10 Ml) 10 ml IV BID [facility] Sodium Chloride (Sodium Chloride Flush Syringe 10 Ml) 10 ml IV PRN PRN PRN Reason: LINE FLUSH Review of Systems Constitutional: no weight loss, no weight gain, no fever, no chills Ears, nose, mouth and throat: no ear pain, no ear discharge, no tinnitis, no decreased hearing, no nose pain Cardiovascular: shortness of breath, no chest pain, no orthopnea, no palpitations, no rapid/irregular heart beat, no edema Respiratory: no cough, no cough with sputum, no excessive sputum, no hemoptysis Gastrointestinal: no abdominal pain, no nausea, no vomiting, no diarrhea, no constipation, no change in bowel habits Genitourinary Male: no hematuria, no flank pain, no discharge, no urinary frequency, no urinary hesitancy, no nocturia Rectal: no pain, no incontinence, no bleeding Musculoskeletal: no neck stiffness, no neck pain, no arm numbness/tingling, no low back pain Integumentary: no rash, no pruritis, no redness, no sores Neurological: no head injury, no transient paralysis, no paralysis, no parathesi as, no numbness, no seizures, no ataxia Psychiatric: no anxiety, no memory loss, no change in sleep habits, no sleep disturbances, no insomnia, no hypersomnia, no change in appetite, no change in libido, no suicidal ideation Endocrine: no cold intolerance, no heat intolerance, no polyphagia, no excessive thirst, no polyuria Hematologic/Lymphatic: no easy bruising, no easy bleeding, no lymphadenopathy, no lymphedema Allergic/Immunologic: no urticaria, no allergic rhinitis, no wheezing, no persistent infections, no anaphylaxis, no angioedema Exam - Constitutional General appearance: Present: no acute distress - EENT Eyes: Present: PERRL ENT: hearing intact, clear oral mucosa - Neck Neck: Present: supple, normal ROM - Respiratory Respiratory effort: normal Respiratory: bilateral: CTA - Cardiovascular Heart Sounds: Present: S1 & S2. Absent: rub, click - Extremities Extremities: pulses symmetrical, No edema Peripheral Pulses: within normal limits - Abdominal General gastrointestinal: Present: soft, non-tender, non-distended, normal bowel sounds Male genitourinary: Present: normal - Integumentary Integumentary: Present: clear, warm, dry - Musculoskeletal Musculoskeletal: gait normal, strength equal bilaterally - Psychiatric Psychiatric: appropriate mood/affect, intact judgment & insight - Neurologic Neurologic: CNII-XII intact, moves all extremities Results - Labs CBC & Chem 7: 01/13/19 15:08 01/13/19 15:08 Assessment and Plan - Patient Problems (1) ESRD (end stage renal disease) on dialysis Current Visit: Yes Status: Acute Plan to address problem: CMP, nephrology consulted for dialysis, avoid nephrotoxic agents. strict I/O, daily weight, monitor uop q shift, (2) Acute on chronic systolic heart failure Current Visit: No Status: Acute Plan to address problem: Admit to medical floor, remote telemetry, strict I/O, daily weight, monitor uop q shift, afterload reduction, diuresis, urgent dialysis, bnp (3) Diabetes Current Visit: Yes Status: Acute Plan to address problem: ADA diet, insulin, accu check (4) HTN (hypertension) Current Visit: Yes Status: Acute Qualifiers: Hypertension type: essential hypertension Qualified Code(s): I10 - Essential (primary) hypertension Plan to address problem: Monitor bp q shift, continue medical management, (5) DVT prophylaxis Current Visit: No Status: Acute Plan to address problem: SCD to BLE while in bed, Pt ambulating without restriction,
--- NOTE | 2019-01-13 15:24 | XRay Report ---
Single view chest: Compared to 01/10/19. History: Dyspnea. Findings: Mild cardiomegaly. Trachea is midline. Tip of large bore venous catheter in right atrium. No consolidation or pleural effusion. Impression: Cardiomegaly. No acute lung changes.
[2019-01-13 15:28] LABS: Basophils # (Auto) 0.1 K/mm3 (0.0-0.1); Basophils % (Auto) 0.9 % (0.0-1.8); Eosinophils # (Auto) 0.2 K/mm3 (0.0-0.4); Eosinophils % (Auto) 2.9 % (0.0-4.3); Hematocrit 32.1 % (35.5-45.6); Hemoglobin 10.7 gm/dl (11.8-15.2); Lymphocytes # (Auto) 1.6 K/mm3 (1.2-5.4); Mean Corpuscular HGB Conc 33 % (32-34); Mean Corpuscular Volume 84 fl (84-94); Monocytes # (Auto) 0.5 K/mm3 (0.0-0.8); Monocytes % (Auto) 7.4 % (0.0-7.3); Platelet Count 202 K/mm3 (140-440); Red Blood Count 3.81 M/mm3 (3.65-5.03); Red Cell Distribution Width 14.5 % (13.2-15.2)
[2019-01-13 15:37] LABS: INR 0.88 (0.87-1.13)
[2019-01-13 15:42] LABS: Alanine Aminotransferase 9 units/L (7-56); Albumin 3.5 g/dL (3.9-5); BUN/Creatinine Ratio 7; Blood Urea Nitrogen 60 mg/dL (9-20); Calcium 7.6 mg/dL (8.4-10.2); Hemolysis Index 7
[2019-01-13] MEDS ORDERED: NACL 0.9% 100 ML IV PRN (17:00)
[2019-01-13] MEDS: LASIX PO SCH (18:20)
[2019-01-13] MEDS: APRESOLINE PO SCH ×2 (20:39→23:41)
[2019-01-13] MEDS: COREG PO SCH (23:41)
[2019-01-13] MEDS: SODIUM CHLORIDE FLUSH SYRINGE 10 ML IV SCH (23:42)
[2019-01-14 06:01] LABS: Basophils # (Auto) 0.1 K/mm3 (0.0-0.1); Eosinophils # (Auto) 0.3 K/mm3 (0.0-0.4); Eosinophils % (Auto) 5.1 % (0.0-4.3); Hematocrit 32.3 % (35.5-45.6); Hemoglobin 10.7 gm/dl (11.8-15.2); Lymphocytes # (Auto) 1.4 K/mm3 (1.2-5.4); Lymphocytes % (Auto) 23.4 % (13.4-35.0); Mean Corpuscular HGB Conc 33 % (32-34); Mean Corpuscular Volume 84 fl (84-94); Monocytes # (Auto) 0.6 K/mm3 (0.0-0.8); Monocytes % (Auto) 9.5 % (0.0-7.3); Platelet Count 183 K/mm3 (140-440); Red Blood Count 3.84 M/mm3 (3.65-5.03); Red Cell Distribution Width 14.2 % (13.2-15.2)
[2019-01-14] MEDS: LASIX PO SCH (06:21)
[2019-01-14 06:27] LABS: Calcium 7.8 mg/dL (8.4-10.2)
[2019-01-14] MEDS: APRESOLINE PO SCH ×2 (09:24→17:00)
[2019-01-14] MEDS: COREG PO SCH (09:25)
[2019-01-14] MEDS ORDERED: NACL 0.9% 100 ML IV PRN (09:45)
--- NOTE | 2019-01-14 09:52 | Consultation ---
History of Present Illness - Reason for Consult Consult date: 01/14/19 end stage renal disease Requesting physician: BENNIE DE LA ROSA - History of Present Illness Mr. Talyor is a 48-year-old -Gabonese male with recently diagnosed end- stage renal disease is being readmitted for cardiac evaluation. Patient was admitted last weekend with shortness of breath and mild uremic symptoms. He had his first dialysis treatment on the first of this month following a Vas-Cath placement. However he got discharged the same evening without any outpatient dialysis arrangements. We have been trying to get him except that at [facility]. However because of his significant cardiac history he is now readmitted to complete his cardiac workup. He did receive an additional dialysis treatment yesterday last night. His shortness of breath has improved significantly following that. Patient denies any nausea or vomiting Past History Past Medical History: diabetes, ESRD, heart failure, hypertension Past Surgical History: tonsillectomy, Other (dialysis access, lumbar puncture, cardiac cath) Social history: . denies: smoking, alcohol abuse, prescription drug abuse Family history: diabetes, hypertension Medications and Allergies Allergies Allergy/AdvReac Type Severity Reaction Status Date / Time No Known Allergies Allergy Verified 09/12/17 11:30 Home Medications Medication Instructions Recorded Confirmed Last Taken Type Carvedilol [Coreg] 25 mg PO BID #60 tablet 06/13/17 01/13/19 01/13/19 09:00 Rx Furosemide [Lasix TAB] 20 mg PO BID #60 tablet 06/13/17 01/13/19 01/13/19 09:00 Rx Insulin NPH/Regular [NovoLIN 70/30] 36 unit SUB-Q BIDDIAB 09/12/17 01/13/19 01/12/19 21:00 History Aspirin EC [Aspirin Enteric Coated 81 mg PO QDAY #30 tablet. 09/13/17 01/13/19 01/13/19 09:00 Rx TAB] Famotidine [Pepcid] 20 mg PO QAM #15 tablet 09/13/17 01/13/19 01/13/19 09:00 Rx hydrALAZINE [Apresoline TAB] 50 mg PO TID 01/10/19 01/13/19 01/13/19 08:00 History Active Meds: Active Medications Acetaminophen (Tylenol) 650 mg PO Q4H PRN PRN Reason: Pain MILD(1-3)/Fever >100.5/CARTAGENA Albuterol (Proventil) 2.5 mg IH Q4HRT PRN PRN Reason: Shortness Of Breath Aspirin (Halfprin Ec) 81 mg PO QDAY [facility] Last Admin: 01/14/19 09:25 Dose: 81 mg Documented by: Carvedilol (Coreg) 25 mg PO BID [facility] Last Admin: 01/14/19 09:25 Dose: 25 mg Documented by: Famotidine (Pepcid) 20 mg PO QAM [facility] Last Admin: 01/14/19 09:25 Dose: 20 mg Documented by: Furosemide (Lasix) 20 mg PO 0600,1800 [facility] Last Admin: 01/14/19 06:21 Dose: 20 mg Documented by: Hydralazine HCl (Apresoline) 50 mg PO TID [facility] Last Admin: 01/14/19 09:24 Dose: 50 mg Documented by: Sodium Chloride (Nacl 0.9%) 100 mls @ 999 mls/hr IV AFUA PRN PRN Reason: Hypotension Sodium Chloride (Nacl 0.9%) 100 mls @ 999 mls/hr IV AFUA PRN PRN Reason: Hypotension Insulin Human Isoph/Insulin Regular (Humulin 70/30) 36 unit SUB-Q BIDDIAB [facility] Last Admin: 01/13/19 18:21 Dose: 36 unit Documented by: Ondansetron HCl (Zofran) 4 mg IV Q8H PRN PRN Reason: Nausea And Vomiting Sodium Chloride (Sodium Chloride Flush Syringe 10 Ml) 10 ml IV BID [facility] Last Admin: 01/13/19 23:42 Dose: 10 ml Documented by: Sodium Chloride (Sodium Chloride Flush Syringe 10 Ml) 10 ml IV PRN PRN PRN Reason: LINE FLUSH Review of Systems All systems: negative (negative except as noted above) Exam - Vital Signs Vital signs: Vital Signs Temp Pulse Resp BP Pulse Ox 98.0 F 86 20 174/94 95 01/13/19 16:12 01/13/19 16:12 01/13/19 16:12 01/13/19 16:12 01/13/19 16:12 - General Appearance General appearance: well-developed, well-nourished, appears stated age EENT: ATNC, PERRL, mucous membranes moist Neck: Present: neck supple, trachea midline, Other (right IJ permcath in place). Absent: JVD/HJR, Masses Respiratory: Clear to Ascultation Heart: regular, normal heart rate, S1S2, no murmurs Gastrointestinal: Present: normal. Absent: tenderness, distended, masses, g uarding Integumentary: other (trace edema) Results - Lab Results 01/14/19 05:07 01/14/19 05:07 Most recent lab results Calcium 7.8 mg/dL (8.4-10.2) L 01/14/19 05:07 Assessment and Plan Impression * End-stage renal disease * Cardiomyopathy * Hypertension * Diabetes * Anemia Recommendation * Patient had his second dialysis treatment yesterday. Shortness of breath seems to have improved significantly following that. * Shall dialyze him again today and remove additional fluid as tolerated * Patient is currently undergoing cardiac workup * Procrit with dialysis * Avoid nephrotoxins * Adjust diet and meds for ESRD state * His outpatient dialysis has been arranged at [facility] on MWF schedule
[2019-01-14] MEDS ORDERED: PEPCID PO SCH (10:00)
[2019-01-14] MEDS ORDERED: HALFPRIN EC PO SCH (10:00)
--- NOTE | 2019-01-14 10:04 | Consultation ---
History of Present Illness Consult date: 01/14/19 Requesting physician: JULIA ROUSSEAU Consult reason: congestive heart failure History of present illness: The pt is a 48 YO male with a past medical history of NICMP, CKD, HTN, DM. He has been seen in our office in the past by Dr. JARRETT Tovar. He initially presented on 01/10 with c/o progressively worsening SOB, orthopnea, BLE edema and dry cough for approx 3 weeks prior to arrival. He has subsequently been diagnosed with ESRD and is s/p dialysis access placement for initiation of HD. He underwent HD yesterday and states he is already feeling much better. Of note, pt was found to have EF 20-25% and discharged home with LifeVest in 06/2017 and he states that the vest was returned due to insurance issues. He has yet to be evaluated for AICD candidacy as OP. Echo done 01/10/19 showed EF 30-35%, grade 2 diastolic dysfunction, dilated LA and RA, mild AR, mod to severe MR, mild TR, RVSP 39mmHg, minimal pericardial effusion which does not appear to be hemodynamically significant. Lexiscan MPI stress test done 09/2017 was negative for ischemia, EF 40%. Past History Past Medical History: diabetes, ESRD, heart failure, hypertension Past Surgical History: tonsillectomy, Other (dialysis access, lumbar puncture, cardiac cath) Social history: . denies: smoking, alcohol abuse, prescription drug abuse Family history: diabetes, hypertension Medications and Allergies Allergies Allergy/AdvReac Type Severity Reaction Status Date / Time No Known Allergies Allergy Verified 09/12/17 11:30 Home Medications Medication Instructions Recorded Confirmed Last Taken Type Carvedilol [Coreg] 25 mg PO BID #60 tablet 06/13/17 01/13/19 01/13/19 09:00 Rx Furosemide [Lasix TAB] 20 mg PO BID #60 tablet 06/13/17 01/13/19 01/13/19 09:00 Rx Insulin NPH/Regular [NovoLIN 70/30] 36 unit SUB-Q BIDDIAB 09/12/17 01/13/19 01/12/19 21:00 History Aspirin EC [Aspirin Enteric Coated 81 mg PO QDAY #30 tablet. 09/13/17 01/13/19 01/13/19 09:00 Rx TAB] Famotidine [Pepcid] 20 mg PO QAM #15 tablet 09/13/17 01/13/19 01/13/19 09:00 Rx hydrALAZINE [Apresoline TAB] 50 mg PO TID 01/10/19 01/13/19 01/13/19 08:00 Hist ory Active Meds: Active Medications Acetaminophen (Tylenol) 650 mg PO Q4H PRN PRN Reason: Pain MILD(1-3)/Fever >100.5/CARTAGENA Albuterol (Proventil) 2.5 mg IH Q4HRT PRN PRN Reason: Shortness Of Breath Aspirin (Halfprin Ec) 81 mg PO QDAY [facility] Last Admin: 01/14/19 09:25 Dose: 81 mg Documented by: Carvedilol (Coreg) 25 mg PO BID [facility] Last Admin: 01/14/19 09:25 Dose: 25 mg Documented by: Famotidine (Pepcid) 20 mg PO QAM [facility] Last Admin: 01/14/19 09:25 Dose: 20 mg Documented by: Furosemide (Lasix) 20 mg PO 0600,1800 [facility] Last Admin: 01/14/19 06:21 Dose: 20 mg Documented by: Hydralazine HCl (Apresoline) 50 mg PO TID [facility] Last Admin: 01/14/19 09:24 Dose: 50 mg Documented by: Sodium Chloride (Nacl 0.9%) 100 mls @ 999 mls/hr IV AFUA PRN PRN Reason: Hypotension Sodium Chloride (Nacl 0.9%) 100 mls @ 999 mls/hr IV AFUA PRN PRN Reason: Hypotension Insulin Human Isoph/Insulin Regular (Humulin 70/30) 36 unit SUB-Q BIDDIAB [facility] Last Admin: 01/14/19 09:53 Dose: 36 unit Documented by: Ondansetron HCl (Zofran) 4 mg IV Q8H PRN PRN Reason: Nausea And Vomiting Sodium Chloride (Sodium Chloride Flush Syringe 10 Ml) 10 ml IV BID [facility] Last Admin: 01/13/19 23:42 Dose: 10 ml Documented by: Sodium Chloride (Sodium Chloride Flush Syringe 10 Ml) 10 ml IV PRN PRN PRN Reason: LINE FLUSH Review of Systems Constitutional: no fever, no chills, no sweats Ears, nose, mouth and throat: no ear pain, no nose pain, no sinus pressure, no sinus pain Cardiovascular: orthopnea, edema, shortness of breath, dyspnea on exertion, paroxysmal nocturnal dyspnea, high blood pressure, leg edema, decreased exercise tolerance, no chest pain, no palpitations, no rapid/irregular heart beat, no syncope, no lightheadedness Respiratory: cough, shortness of breath, dyspnea on exertion, no cough with sputum, no congestion, no wheezing, no pain on inspiration Gastrointestinal: no abdominal pain, no nausea, no vomiting, no diarrhea, no constipation, no change in bowel habits Genitourinary Male: no dysuria, no hematuria, no flank pain, no discharge, no urinary frequency, no urinary hesitancy Musculoskeletal: no neck stiffness, no neck pain, no shooting arm pain, no arm numbness/tingling, no low back pain, no shooting leg pain Integumentary: no rash, no pruritis, no redness, no sores, no wounds Neurological: no head injury, no paralysis, no weakness, no parathesias, no numbness, no tingling, no seizures, no syncope Psychiatric: no anxiety Endocrine: no cold intolerance, no heat intolerance Hematologic/Lymphatic: no easy bruising, no easy bleeding Allergic/Immunologic: no urticaria, no wheezing Physical Examination Vital Signs Temp Pulse Resp BP Pulse Ox 98.0 F 86 20 174/94 95 01/13/19 16:12 01/13/19 16:12 01/13/19 16:12 01/13/19 16:12 01/13/19 16:12 General appearance: no acute distress HEENT: Positive: PERRL, Normocephaly, Mucus Membranes Moist Neck: Positive: neck supple, trachea midline Cardiac: Positive: Reg Rate and Rhythm, S1/S2 Lungs: Positive: Decreased Breath Sounds Neuro: Positive: Grossly Intact Abdomen: Positive: Soft. Negative: Tender Male genitourinary: Negative: tender Skin: Negative: Rash Musculoskeletal: No Pain Extremities: Absent: edema Results 01/14/19 05:07 01/14/19 05:07 Cardiac Enzymes 01/13/19 Range/Units 15:08 AST 13 (5-40) units/L Coagulation 01/13/19 Range/Units 15:08 PT 12.5 (12.2-14.9) Sec. INR 0.88 (0.87-1.13) CBC 01/13/19 01/14/19 Range/Units 15:08 05:07 WBC 7.3 6.1 (4.5-11.0) K/mm3 RBC 3.81 3.84 (3.65-5.03) M/mm3 Hgb 10.7 L 10.7 L (11.8-15.2) gm/dl Hct 32.1 L 32.3 L (35.5-45.6) % Plt Count 202 183 (140-440) K/mm3 Lymph # 1.6 1.4 (1.2-5.4) K/mm3 [place] # 0.5 0.6 (0.0-0.8) K/mm3 Eos # 0.2 0.3 (0.0-0.4) K/mm3 Baso # 0.1 0.1 (0.0-0.1) K/mm3 Comprehensive Metabolic Panel 01/13/19 01/14/19 Range/Units 15:08 05:07 Sodium 141 144 (137-145) mmol/L Potassium 5.0 3.9 D (3.6-5.0) mmol/L Chloride 103.6 100.0 (98-107) mmol/L Carbon Dioxide 23 29 (22-30) mmol/L BUN 60 H 35 H (9-20) mg/dL Creatinine 9.1 H 6.9 H (0.8-1.5) mg/dL Glucose 298 H 94 (75-100) mg/dL Calcium 7.6 L 7.8 L (8.4-10.2) mg/dL AST 13 (5-40) units/L ALT 9 (7-56) units/L Alkaline Phosphatase 78 (35-129) units/L Total Protein 6.6 (6.3-8.2) g/dL Albumin 3.5 L (3.9-5) g/dL - Imaging and Cardiology Echo: report reviewed (01/10/19 showed EF 30-35%, grade 2 diastolic dysfunction, dilated LA and RA, mild AR, mod to severe MR, mild TR, RVSP 39mmHg, minimal pericardial effusion which does not appear to be hemodynamically significant.) EKG: report reviewed, image reviewed EKG interpretations - Telemetry EKG Rhythm: Sinus Rhythm - EKG Sinus rhythms and dysrhythmias: sinus rhythm Chamber hypertrophy or enlargement: left ventricular hypertro Assessment and Plan Agree with present cardiac regimen. Volume optimization per nephrology. No ACEI/ARB at this time in setting of renal insufficiency. Of note, pt was found to have EF 20-25% and discharged home with LifeVest in 06/2017 and he states that the vest was returned due to insurance issues. He has yet to be evaluated for AICD candidacy as OP. F/u echo shows EF 30-35%. Cardiac defibrillator is still recommended. Pt declines LifeVest at this time and wishes to readdress AICD candidacy as OP. The patient has been seen in conjunction with Dr. Moreno who agrees with the assessment and plan of care. - Patient Problems (1) Acute HFrEF (heart failure with reduced ejection fraction) Current Visit: Yes Status: Acute (2) Acute on chronic renal failure Current Visit: Yes Status: Acute (3) Accelerated hypertension Current Visit: Yes Status: Chronic (4) NSVT (nonsustained ventricular tachycardia) Current Visit: Yes Status: Acute (5) Diabetes mellitus Current Visit: Yes Status: Chronic Qualifiers: Diabetes mellitus type: type 2 Diabetes mellitus complication status: with kidney complications
--- NOTE | 2019-01-14 11:24 | Progress Note ---
Assessment and Plan / ESRD (end stage renal disease) on dialysis Nephrology consulted for dialysis, avoid nephrotoxic agents. / Acute on chronic systolic heart failure: On remote telemetry, strict I/O, daily weight, monitor uop q shift, afterload reduction, cont diuresis, urgent dialysis, Consulted cardiology, Echo done 01/10/19 showed EF 30-35%, grade 2 diastolic dysfunction, dilated LA and RA, mild AR, mod to severe MR, mild TR, RVSP 39mmHg, minimal pericardial effusion which does not appear to be hemodynamically significant. / Diabetes cont ADA diet, insulin, accu check / HTN (hypertension) Monitor bp q shift, continue medical management, / DVT prophylaxis SCD to BLE while in bed, Pt ambulating without restriction Subjective Date of service: 01/14/19 Objective - Constitutional Vitals: Vital Signs - 12hr 01/13/19 01/13/19 01/14/19 23:41 23:51 01:06 Temperature Pulse Rate 89 85 Respiratory 18 Rate Blood Pressure 183/108 144/87 O2 Sat by Pulse 98 95 Oximetry 01/14/19 01/14/19 01/14/19 05:56 09:24 09:25 Temperature 99.5 F Pulse Rate 80 75 75 Respiratory 20 Rate Blood Pressure 154/97 172/102 172/102 O2 Sat by Pulse 95 Oximetry - Labs CBC & Chem 7: 01/14/19 05:07 01/14/19 05:07 Labs: Abnormal lab results 01/13/19 01/13/19 01/13/19 Range/Units 15:08 15:08 15:08 Hgb 10.7 L (11.8-15.2) gm/dl Hct 32.1 L (35.5-45.6) % [place] % (Auto) 7.4 H (0.0-7.3) % Eos % (Auto) (0.0-4.3) % BUN 60 H (9-20) mg/dL Creatinine 9.1 H (0.8-1.5) mg/dL Glucose 298 H (75-100) mg/dL POC Glucose (70-105) Calcium 7.6 L (8.4-10.2) mg/dL NT-Pro-B Natriuret Pep 3788 H (0-450) pg/mL Albumin 3.5 L (3.9-5) g/dL 01/13/19 01/14/19 01/14/19 Range/Units 16:20 05:07 05:07 Hgb 10.7 L (11.8-15.2) gm/dl Hct 32.3 L (35.5-45.6) % [place] % (Auto) 9.5 H (0.0-7.3) % Eos % (Auto) 5.1 H (0.0-4.3) % BUN 35 H (9-20) mg/dL Creatinine 6.9 H (0.8-1.5) mg/dL Glucose (75-100) mg/dL POC Glucose 232 H (70-105) Calcium 7.8 L (8.4-10.2) mg/dL NT-Pro-B Natriuret Pep (0-450) pg/mL Albumin (3.9-5) g/dL 01/14/19 Range/Units 09:52 Hgb (11.8-15.2) gm/dl Hct (35.5-45.6) % [place] % (Auto) (0.0-7.3) % Eos % (Auto) (0.0-4.3) % BUN (9-20) mg/dL Creatinine (0.8-1.5) mg/dL Glucose (75-100) mg/dL POC Glucose 164 H (70-105) Calcium (8.4-10.2) mg/dL NT-Pro-B Natriuret Pep (0-450) pg/mL Albumin (3.9-5) g/dL
[2019-01-14] MEDS ORDERED: NACL 0.9 (PRIMING MACHINE ONLY DIALYSIS) MC ONE (11:54)
--- NOTE | 2019-01-14 15:30 | Discharge Summary ---
Providers - Providers Date of Admission: 01/13/19 14:42 Date of discharge: 01/14/19 Attending physician: JULIA ROUSSEAU Primary care physician: ENGINEERING SUPERVISOR Hospitalization Pertinent studies: CXR Hospital course: Mr. Taylor is a 48-year-old -[place] male with recently diagnosed end- stage renal disease is being readmitted for cardiac evaluation. Patient was admitted last weekend with shortness of breath and mild uremic symptoms. He had his first dialysis treatment on the first of this month following a Vas-Cath placement. However he got discharged the same evening without any outpatient dialysis arrangements. Because of his significant cardiac history he is now readmitted to complete his cardiac workup and reset outpt HD. Discharge diagnosis and management: / ESRD (end stage renal disease) on dialysis Nephrology consulted for dialysis, avoided nephrotoxic agents. s/p Set up outpt HD, Renal cleared for d/c / Acute on chronic systolic heart failure: Likely from volume overload, symptom resolved following HD Admitted On remote telemetry with strict I/O, daily weight, Consulted cardiology, recommended medical Mx Echo done 01/10/19 showed EF 30-35%, grade 2 diastolic dysfunction, / Diabetes Mx with ADA diet, insulin, accu check / HTN (hypertension) Monitored bp q shift, continued home meds / DVT prophylaxis SCD to BLE while in bed, Pt ambulating without restriction Disposition: DC-01 TO HOME OR SELFCARE Time spent for discharge: 34 minutes Core Measure Documentation - Palliative Care Palliative Care/ Comfort Measures: Not Applicable - Core Measures Any of the following diagnoses?: none Exam - Constitutional Vitals: Temp Pulse Resp BP Pulse Ox 98.2 F 74 16 158/88 95 01/14/19 13:00 01/14/19 13:00 01/14/19 13:00 01/14/19 13:00 01/14/19 05:56 General appearance: Present: no acute distress, well-nourished - EENT Eyes: Present: PERRL ENT: hearing intact, clear oral mucosa - Neck Neck: Present: supple, normal ROM - Respiratory Respiratory effort: normal Respiratory: bilateral: CTA - Cardiovascular Heart Sounds: Present: S1 & S2. Absent: rub, click - Extremities Extremities: pulses symmetrical, No edema Peripheral Pulses: within normal limits - Abdominal General gastrointestinal: Present: soft, non-tender, non-distended, normal bowel sounds - Integumentary Integumentary: Present: clear, warm, dry - Musculoskeletal Musculoskeletal: gait normal, strength equal bilaterally - Psychiatric Psychiatric: appropriate mood/affect, intact judgment & insight - Neurologic Neurologic: CNII-XII intact, moves all extremities Plan Activity: advance as tolerated Weight Bearing Status: Weight Bear as Tolerated Diet: renal Special Instructions: restrict fluid intake to (1.2 L daily) Follow up with: PRIMARY CARE, [Referring] - 7 Days
[2019-01-14] MEDS: SODIUM CHLORIDE FLUSH SYRINGE 10 ML IV SCH (17:01)
[2019-01-14 17:02] VITALS: BP 144/96
== END 2019-01-14 17:35 | disposition home or self-care (01) | DRG 291 ==
LOC: 3A 14:12 → UNDOADMIN 14:12 → 3A 14:42
PROVIDERS: ADMIT Internal Medicine Nephrology; ATTEND Internal Medicine
PROC: 5A1D70Z Performance of Urinary Filtration, Intermittent, Less than 6 Hours Per Day (ICD-10-PCS; 2019-01-13)
PROC: 5A1D70Z Performance of Urinary Filtration, Intermittent, Less than 6 Hours Per Day (ICD-10-PCS; principal; 2019-01-14)
DX: I13.2 Hypertensive heart and chronic kidney disease with heart failure and with stage 5 chronic kidney disease, or end stage renal disease (principal); I50.23 Acute on chronic systolic (congestive) heart failure; N18.6 End stage renal disease; N17.9 Acute kidney failure, unspecified; I47.2 Ventricular tachycardia; I42.9 Cardiomyopathy, unspecified; D64.9 Anemia, unspecified; I08.3 Combined rheumatic disorders of mitral, aortic and tricuspid valves; E11.22 Type 2 diabetes mellitus with diabetic chronic kidney disease; Z99.2 Dependence on renal dialysis; Z83.3 Family history of diabetes mellitus; Z82.49 Family history of ischemic heart disease and other diseases of the circulatory system; Z90.89 Acquired absence of other organs; Z79.82 Long term (current) use of aspirin; Z79.4 Long term (current) use of insulin
CPT/HCPCS: 36415; 71045; 80048; 80053; 82962; 83880; 85025; 85610; 93005; 93010; G0378; J1815; J2405; J7030

== ENCOUNTER 2019-12-14 09:23 | Day surgery (SDC) | payer OTHER, MEDICARE ==
[~2019-12-14 09:23] MED LIST: SODIUM CHLORIDE 0.9% 1000 ML 1,000 ML IV SCH
[2019-12-14] MEDS ORDERED: WATER FOR IRRIG STERILE 250 ML BOTTLE IR ONE (09:42)
--- NOTE | 2019-12-14 09:52 | Anesthesia Consultation ---
Anesthesia Consult and Med Hx Date of service: 12/14/19 - Airway Anesthetic Teeth Evaluation: Chipped ROM Head & Neck: Adequate Mental/Hyoid Distance: Adequate Mallampati Class: Class II Intubation Access Assessment: Good - Pre-Operative Health Status ASA Pre-Surgery Classification: ASA3 Proposed Anesthetic Plan: MAC - Pulmonary Hx Asthma: No COPD: No Hx Pneumonia: No - Cardiovascular System Hx Hypertension: Yes Hx Coronary Artery Disease: Yes (CHF-EF-50% per pt. Non-ischemic cardiomyopathy) Hx Heart Attack/AMI: Yes (NSTEMI (non-ST elevated myocardial infarction)) Hx Heart Murmur: Yes - Central Nervous System Hx Psychiatric Problems: No - Gastrointestinal Hx Gastroesophageal Reflux Disease: Yes - Endocrine Hx Renal Disease: Yes Hx End Stage Renal Disease: Yes Hx Non-Insulin Dependent Diabetes: Yes (FBS 141) - Hematic Hx Anemia: Yes - Additional Comments Anesthesia Medical History Comments: Was here 08/25/2019. - Imaging and Cardiology. EKG: report reviewed, image reviewed. Echo: report reviewed ( 01/10/19 showed EF 30-35%, grade 2 diastolic dysfunction, dilated LA and RA, mild AR, mod to severe MR, mild TR, RVSP 39mmHg, minimal pericardial effusion which does not appear to be hemodynamically significant.). Lexiscan MPI stress test done 09/2017 was negative for ischemia, EF 40%. - EKG. Sinus rhythms and dysrhythmias: sinus rhythm
--- NOTE | 2019-12-14 09:53 | Anesthesia Day of Surgery ---
Anesthesia Day of Surgery - Day of Surgery Patient Examined: Yes Patient H&P Reviewed: Yes Patient is NPO: Yes Beta Blockers: Yes
[2019-12-14] MEDS ORDERED: LIDOCAINE MPF (2%) 20 MG/1 ML VIAL 5 ML ONE (10:21)
[2019-12-14] MEDS ORDERED: propofoL 200 MG/20 ML VIAL IV ONE ×2 (10:21)
[2019-12-14] MEDS ORDERED: GENTAMICIN/NS 120MG/100ML 120 MG/100 ML BAG IV NR (10:30)
[2019-12-14] MEDS ORDERED: AMPICILLIN/NS 1 GM/50 ML 1 GM/50 ML BAG IV ONE (10:30)
[2019-12-14] MEDS ORDERED: GENTAMICIN 40 MG/ML VIAL 2 ML IV SCH (10:30)
--- NOTE | 2019-12-14 11:02 | Short Stay Summary ---
Short Stay Documentation Date of service: 12/14/19 - History H&P: obtained from office - Allergies and Medications Current Medications: Allergies No Known Allergies Allergy (Verified 09/12/17 11:30) Home Medications Medication Instructions Recorded Confirmed Last Taken Type carvediloL [Coreg] 25 mg PO BID #60 tablet 06/13/17 12/14/19 12/13/19 Rx Calcitriol 0.5 mcg PO QDAY 10/27/19 12/14/19 Unknown History Calcium Acetate 667 mg PO TID 10/27/19 12/14/19 Unknown History Calcium Acetate [Phoslo] 1,334 mg PO TID 10/27/19 12/14/19 10/26/19 History 1334 MG Cholecalciferol (Vitamin D3) 50,000 units PO QWEEK 10/27/19 12/14/19 12/13/19 History [Vitamin D3 50,000UNIT CAP] Furosemide [Lasix TAB] 80 mg PO BID 10/27/19 12/14/19 12/13/19 History Losartan Potassium 50 mg PO QDAY 10/27/19 12/14/19 12/13/19 History Sitagliptin Phosphate [Januvia] 25 tab PO DAILY 10/27/19 12/14/19 12/13/19 History Ondansetron [Zofran Odt] 4 mg PO Q8HR PRN #30 tab.rapdis 10/29/19 12/14/19 Unknown Rx Pantoprazole [Protonix] 40 mg PO QDAY #30 tablet 10/29/19 12/14/19 12/13/19 Rx Active Medications Sodium Chloride (Nacl 0.9% 1000 Ml) 1,000 mls @ 50 mls/hr IV DIRECT TESFAYE Last Admin: 12/14/19 10:08 Dose: 50 mls/hr Documented by: Gentamicin Sulfate/Sodium Chloride (Gentamicin/Ns 120mg/100ml) 120 mg in 100 mls @ 200 mls/hr IV PREOP NR Stop: 12/14/19 12:30 Last Admin: 12/14/19 10:22 Dose: 200 mls/hr Documented by: - Brief post op/procedure progress note Date of procedure: 12/14/19 Findings: see dictation Estimated blood loss: none Pathology: none Condition: stable - Disposition Condition at discharge: Good Disposition: DC-01 TO HOME OR SELFCARE - Discharge Diagnoses (1) Colon cancer screening Status: Acute Short Stay Discharge Plan Activity: other (no driving for 24 hours.) Weight Bearing Status: Full Weight Bearing Diet: renal Follow up with: ALISON OSBORN MD [Primary Care Provider] - 7 Days
--- NOTE | 2019-12-14 11:04 | Operative Report ---
Operative Report Operative Report: Date of procedure: 12/14/2019 Preprocedure diagnosis: Colon cancer screening, no prior studies. Post procedure diagnosis: Normal study Procedure: Colonoscopy to the cecum Endoscopist: Dr. Noriega Anesthesia: Monitored anesthesia care per anesthesia department. Medications: Propofol per anesthesia. Ampicillin 1 g IV and gentamicin 120 milligrams IV for SBP prophylaxis because of the patient's peritoneal dialysis. Estimated blood loss: 0 Medications: Monitored anesthesia care. See separate report by anesthesia for details. After careful discussion of the nature and purpose of the procedure as well as details of the technique risks benefits and alternatives the patient gave consent. Please see recent history and physical from the office. The patient was placed in the left lateral decubitus position and medicated per anesthesia. A rectal exam was performed sphincter tone was normal there were no masses palpable. The [employer] 570 scope was passed transanally and advanced under continuous direct vision without difficulty to the cecum. The colon was well prepared. The cecum was normal. The ascending colon was normal and on forward and retroflexed views. The transverse colon, descending colon, and sigmoid colon were normal. The rectum was normal on forward and retroflexed views. The procedure was well-tolerated overall and the patient was observed in recovery. Conclusions: Normal colonoscopy to the cecum. Plan: Repeat colonoscopy in 10 years. Signed electronically: Rayshawn Noriega M.D.
--- NOTE | 2019-12-14 11:05 | Post Anesthesia Evaluation ---
- Post Anesthesia Evaluation Patient Participated: Yes Airway Patent: Yes Stable Respiratory Function: Yes Nausea/Vomiting: No Temp > 96.8F: Yes Pain Manageable: Yes Adequeate Hydration: Yes Anesthesia Complications: No Block Receding Appropriately: Not Applicable Patient on Ventilator: No
[2019-12-14 11:38] VITALS: BP 151/87
== END 2019-12-14 09:24 | disposition home or self-care (01) ==
LOC: GIO 09:23
PROVIDERS: ATTEND Internal Medicine Gastroenterology
DX: Z12.11 Encounter for screening for malignant neoplasm of colon (principal); I13.2 Hypertensive heart and chronic kidney disease with heart failure and with stage 5 chronic kidney disease, or end stage renal disease; E11.22 Type 2 diabetes mellitus with diabetic chronic kidney disease; N18.6 End stage renal disease; I50.22 Chronic systolic (congestive) heart failure; E11.65 Type 2 diabetes mellitus with hyperglycemia; E66.9 Obesity, unspecified; I25.10 Atherosclerotic heart disease of native coronary artery without angina pectoris; K21.9 Gastro-esophageal reflux disease without esophagitis; D64.9 Anemia, unspecified; I25.2 Old myocardial infarction; Z91.19 Patient's noncompliance with other medical treatment and regimen; Z79.899 Other long term (current) drug therapy; Z68.28 Body mass index [BMI] 28.0-28.9, adult; Z98.890 Other specified postprocedural states; Z99.2 Dependence on renal dialysis; Z86.2 Personal history of diseases of the blood and blood-forming organs and certain disorders involving the immune mechanism
CPT/HCPCS: 45378; 82962; J0290; J1580; J2704; J7030